=== PATIENT | female | born 1995 | race Caucasian/White ===

== ENCOUNTER 2021-10-27 15:48 | Outpatient (CLI) | payer OTHER, SELFPAY ==
--- NOTE | 2021-10-27 15:53 | XRR_ITS ---
PROCEDURE INFORMATION: Exam: XR Chest Exam date and time: 10/27/2021 3:53 PM Age: 26 years old Clinical indication: Pain; Chest pressure; Additional info: R07.89 - other chest pain TECHNIQUE: Imaging protocol: XR of the chest. Views: 2 views. COMPARISON: No relevant prior studies available. FINDINGS: Lungs: Unremarkable. No consolidation. Pleural spaces: Unremarkable. No pleural effusion. No pneumothorax. Heart/Mediastinum: Unremarkable. No cardiomegaly. Bones/joints: Unremarkable. XR/XR chest 2V* [id number] IMPRESSION: No acute findings.
[2021-10-27 16:32] LABS: D Dimer <= 0.27 ug/mIFEU (0-0.59)
== END 2021-10-27 15:49 | disposition home or self-care (01) ==
LOC: RAD 15:51
PROVIDERS: Family Provider Nurse Practitioner Family; PCP Nurse Practitioner Family; Visit Provider Nurse Practitioner Family
DX: R07.89 Other chest pain (principal)
CPT/HCPCS: 36415; 71046; 85378

== ENCOUNTER 2022-01-22 08:00 | Outpatient (CLI) | payer OTHER, SELFPAY ==
--- NOTE | 2022-01-22 08:17 | USCV_ITS ---
Herminia Che Age: 26 Gender: F : 1995 Exam Date: 01/22/2022 08:49 Ordering Phys: Hola Crespo M.D ([email or web address]) Technologist: Rico Wong [place]am [place] [facility] [place] Indication: right branch bundle block BP: 110 / 64 HR: 70 Rhythm: Sinus Technical Quality: Adequate MEASUREMENTS (Male / Female) Normal Values 2D ECHO LV Diastolic Diameter PLAX 4.8 cm 4.2 - 5.9 / 3.9 - 5.3 cm LV Systolic Diameter PLAX 3.1 cm IVS Diastolic Thickness 0.6 cm 0.6 - 1.0 / 0.6 - 0.9 cm IVS Systolic Thickness 0.8 cm LVPW Diastolic Thickness 0.7 cm 0.6 - 1.0 / 0.6 - 0.9 cm LVPW Systolic Thickness 1.1 cm LVOT Diameter 2.0 cm LV Ejection Fraction 2D Teich 64.9 % LV Ejection Fraction MOD 2C 66.2 % LV Ejection Fraction 2C AL 65.8 % LA Diameter 3.1 cm LA Width 3.1 cm LA Height 3.9 cm RA Width 3.0 cm RA Height 3.6 cm Aorta at Sinotubular Diameter 2.2 cm M-MODE Aortic Annulus Diameter 2.7 cm LA Ao Ratio MM 1.1 MV E Point Septal Separation 0.6 cm DOPPLER AV Peak Velocity 115.0 cm/s LVOT Peak Velocity 90.0 cm/s AV Area Cont Eq vti 2.6 cm squared AV Area Cont Eq pk 2.4 cm squared MV Area PHT 4.0 cm squared Mitral E to A Ratio 1.3 MV E' Velocity 47.0 cm/s Mitral E to MV E' Ratio 6.3 Mitral E to LV E' Lateral Ratio 5.8 Mitral E to LV E' Septal Ratio 6.9 Right Atrial Pressure 3.0 mmHg RV Acceleration Time 0.2 s RV Ejection Time 0.3 s RV AcT/ET 0.5 FINDINGS Left Ventricle Normal left ventricular size. LV systolic function is normal with EF of 55-60%. No regional wall motion abnormalities. Diastolic function is normal Right Ventricle The right ventricle is normal in size and function. Right Atrium The right atrium is normal in size. Left Atrium The left atrium is normal in size. Mitral Valve Structurally normal mitral valve without significant stenosis or prolapse. There is trace mitral regurgitation. Aortic Valve Structurally normal aortic valve without significant sclerosis or stenosis. There is no aortic regurgitation. Tricuspid Valve Structurally normal tricuspid valve without significant stenosis or regurgitation. Pulmonary artery systolic pressure is normal. Pulmonic Valve Structurally normal pulmonic valve without significant stenosis. There is no pulmonic regurgitation. Pericardium Normal pericardium without effusion. Aorta Normal ascending aorta dimension. CONCLUSIONS LV systolic function is normal with EF of 55-60% Diastolic function is normal Trace mitral regurgitation No comparion studies are available Hola Crespo MD (Electronically Signed) Final Date: 22 January 2022 14:37 S
== END 2022-01-22 08:01 | disposition home or self-care (01) ==
LOC: RAD 08:01
PROVIDERS: PCP Nurse Practitioner Family; Visit Provider Internal Medicine
DX: I45.10 Unspecified right bundle-branch block (principal); I34.0 Nonrheumatic mitral (valve) insufficiency
CPT/HCPCS: 93306

== ENCOUNTER → 2023-07-23 08:45 | Outpatient (BNVA) | payer OTHER, SELFPAY | PROVIDERS: PCP Nurse Practitioner Family; Visit Provider Nurse Practitioner Family | DX: N89.8 Other specified noninflammatory disorders of vagina (principal); L73.9 Follicular disorder, unspecified | CPT/HCPCS: 81000 ==

== ENCOUNTER → 2024-01-31 09:58 | Outpatient (BNVA) | payer OTHER, SELFPAY | PROVIDERS: PCP Nurse Practitioner Family; Visit Provider Nurse Practitioner Family | DX: J06.9 Acute upper respiratory infection, unspecified (principal); H66.90 Otitis media, unspecified, unspecified ear | CPT/HCPCS: 87400 ==

== ENCOUNTER 2025-09-06 14:58 | Outpatient (CLI) | payer OTHER, SELFPAY ==
[2025-09-06] VITALS (7 sets, daily range): BP systolic 125–139; BP diastolic 84–95; PULSE 83–115; RESP 15; BMI 35.0
[2025-09-06 15:33] LABS: Nitrazine Paper, PH Negative
== END 2025-09-06 16:41 | disposition home or self-care (01) ==
LOC: OPOB 15:00 → OBGYN 15:00
PROVIDERS: PCP Nurse Practitioner Family; Visit Provider Family Medicine
DX: O26.899 Other specified pregnancy related conditions, unspecified trimester (principal); Z3A.00 Weeks of gestation of pregnancy not specified; N89.8 Other specified noninflammatory disorders of vagina
CPT/HCPCS: 59025; 83986; 99211

== ENCOUNTER 2025-09-16 05:05 | Inpatient (IN) | payer OTHER, SELFPAY ==
--- NOTE | 2025-09-01 08:45 | ANES.PREANE2 ---
Pre-Anesthetic Assessment Height/Weight: Height 1.63 m Operation Date: 09/16/25 07:20 Proposed Procedures p Section Repeat 39225(Not Applicable) - Mt Berrios MD Familial anesthetic complications: None Social No alcohol and No tobacco Exam alert, oriented x 3, clear to auscultation bilaterally and regular rate & rhythm Airway Mallampati: Class I CV/HEM RBB Anesthetic Plan ASA status: 2 Anesthesia: Regional (specify below) Risk of > 500 ml blood loss (7ml/kg in children): Yes, adequate IV access and fluids planned Medications/Allergies Home Medications ?Medication ?Instructions ?Recorded ?Confirmed ?Last Taken ?Type amoxicillin 250 mg capsule 250 mg PO TID 7 days #21 caps 04/05/25 04/05/25 Unknown Rx Allergies Allergy/AdvReac Type Severity Reaction Status Date / Time sulfamethoxazole (From Allergy Mild Hives Verified 04/05/25 09:59 Bactrim) trimethoprim (From Bactrim) Allergy Mild Hives Verified 04/05/25 09:59 [facility] [place] Anesthesia Medical History Otitis media Deep vein thrombosis, upper left extremity 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 RBBB (right bundle branch block) Surgical History S/P section Family History Father Hypertension Grandmother Hypertension Stroke Social History Smoking and tobacco/nicotine status: never used tobacco/nicotine Alcohol intake: never Substance/Drug Use: never Adopted: No Caregiver/support person: No Lives independently: No Household members: spouse Marital status: service: No Current occupational status: unemployed Sexually active: Yes Do you think of yourself as: Straight/Heterosexual Current gender identity: Female Female Reproductive History Para: 1 Spontaneous abortions: No Data Anesthesia Cardiac Studies: Echocardiogram 01/22/22
[2025-09-16] VITALS (31 sets, daily range): BP systolic 106–134; BP diastolic 54–93; PULSE 65–94; RESP 15–16; TEMP 36.6; O2SAT 96–99; BMI 36.2
--- OUTSIDE RECORDS SUMMARY | 2025-09-16 05:11 | XMS_ITS | Clinical Summary ---
Author Organization [facility] Address [address] [place] [address] Care Team Providers Care Head Of Design Name Role Phone Sherin Francisco MD Primary Care Provider Allergies No known active allergies Medications No known medications Active Problems No known active problems Resolved Problems Problem Noted Date Diagnosed Date Resolved Date Urinary tract infection with hematuria 05/30/2016 05/16/2017 Family History Medical History Relation Name Comments Healthy Brother Healthy Father Hypertension Maternal Grandmother Stroke Maternal Grandmother Healthy Mother Heart Disease Paternal Grandfather Other Paternal Grandmother Relation Name Status Comments Brother Alive Father Alive Maternal Grandfather Maternal Grandmother Alive Mother Alive Paternal Grandfather Paternal Grandmother Alive Social History Tobacco Use Types Packs/Day Years Used Date Smoking Tobacco: Never Smokeless Tobacco: Never Alcohol Use Standard Drinks/Week Comments No 0 (1 standard drink = 0.6 oz pur e alcohol) Comments No Sex and Gender Information Value Date Recorded Sex Assigned at Not on file Legal Sex Female 9:06 AM [employer] Gender Identity Not on file Sexual Orientation Not on file Last Filed Vital Signs Vital Sign Reading Time Taken Comments Blood Pressure 90/60 03/02/2019 2:53 PM CDT Pulse 105 03/02/2019 2:53 PM CDT Temperature 36.7 C (98 F) 03/02/2019 2:53 PM CDT Respiratory Rate 20 03/02/2019 2:53 PM CDT Oxygen Saturation 99% 03/02/2019 2:53 PM CDT Inhaled Oxygen Concentration - - Weight 68 kg (150 lb) 03/02/2019 2:53 PM CDT Height 162.6 cm (5' 4 ) 03/02/2019 2:53 PM CDT Body Mass Index 25.75 03/02/2019 2:53 PM CDT Plan of Treatment Health Maintenance Due Date Last Done Comments DTAP/TDAP/TD VACCINES (1 - Tdap) 2015 HEPATITIS B VACCINES (1 of 3 - 19+ 3-dose series) 05/19 CERVICAL CANCER SCREENING 2017 HPV/Cotest (21-29) 2017 PAP SMEAR 2017 HPV VACCINES (1 - 3-dose SCDM series) 2023 Preventative Visit- Commercial 11/18/2024 04/24/2016 INFLUENZA VACCINE (#1) [address] [place] [address] CHOICE PLUS [facility] CHOICE PLUS Care Teams Head Of Design Relationship Specialty Start Date End Date Sherin Francisco MD [address] [phone] PCP - General Family Practice 10/16/16
--- OUTSIDE RECORDS SUMMARY | 2025-09-16 05:11 | XMS_ITS | Encounter Summary ---
Author Organization [facility] Address [address] [place] [address] Care Team Providers Care Clinical Reimbursement Specialist Name Role Phone Sherin Francisco MD Primary Care Provider [phone] Reason for Referral * Outpatient Services (Routine) - Closed Specialty Diagnoses / Procedures Referred By Contac t Referred To Contact Radiology Diagnoses Right upper quadrant abdominal tenderness without rebound tenderness Procedures US ABDOMEN COMPLETE US ABDOMEN LIMITED Sandy Bowden FNP Phone: tel: fax: [facility] Ultrasound [place] [address] [place] [address] Phone: tel: fax: Referral ID Status Reason Start Date Expiration Date V isits Requested Visits Authorized [id number] Closed [facility] to Schedule ([facility]) 07/23/2017 08/23/2018 1 1 Encounter Details Date Type Department Care Team (Late st Contact Info) Description 07/24/2017 Ancillary Orders [facility] [address] [place] [address] Sandy Bowden FNP [address] [place] [phone] Right upper quadrant abdominal tenderness without rebound tenderness Social History Tobacco Use Types Packs/Day Years Used Date Smoking Tobacco: Never Smokeless Tobacco: Never Alcohol Use Standard Drinks/Week Comments Not Asked 0 (1 standard drink = 0.6 oz pur e alcohol) Comments No Sex and Gender Information Value Date Recorded Sex Assigned at Not on file Legal Sex Female 9:06 AM [employer] Gender Identity Not on file Sexual Orientation Not on file documented as of this encounter Plan of Treatment Not on file documented as of this encounter Results * US ABDOMEN COMPLETE (07/24/2017 9:04 AM CDT) Anatomical Region Laterality Modality Abdomen Ultrasound 07/24/2017 9:04 AM CDT Impressions 07/24/2017 4:23 PM CDT IMPRESSION: Please see below. Exam: US ABDOMEN COMPLETE Date/Time of Exam: 07/24/2017 9:04 AM Reason For Exam: Right upper quadrant abdominal tenderness without rebound tenderness. Findings: The examination is mildly limited due to patient bowel gas. The pancreas is obscured. The liver parenchyma is homogeneous. Common bile duct measures 3.4 mm in diameter. The gallbladder is normal. The spleen is normal. The right kidney measures 9.8 cm in length. The left kidney measures 10.6 cm in length. The visible abdominal aorta and IVC are unremarkable. IMPRESSION: Negative examination. Narrative Procedure Note Kary Cash MD - 07/24/2017 IMPRESSION IMPRESSION: Please see below. Exam: US ABDOMEN COMPLETE Date/Time of Exam: 07/24/2017 9:04 AM Reason For Exam: Right upper quadrant abdominal tenderness without rebound tenderness. Findings: The examination is mildly limited due to patient bowel gas. The pancreas is obscured. The liver parenchyma is homogeneous. Common bile duct measures 3.4 mm in diameter. The gallbladder is normal. The spleen is normal. The right kidney measures 9.8 cm in length. The left kidney measures 10.6 cm in length. The visible abdominal aorta and IVC are unremarkable. IMPRESSION: Negative examination. us Sandy SAHU US ORDERABLES Final Resul t documented in this encounter Visit Diagnoses Diagnosis Right upper quadrant abdominal tenderness without rebound tenderness Right upper quadrant abdominal tenderness without rebound tenderness documented in this encounter Care Teams Clinical Reimbursement Specialist Relationship Specialty Start Date End Date Sherin Francisco MD [address] [phone] PCP - General Family Practice 10/16/16 documented as of this encounter
--- OUTSIDE RECORDS SUMMARY | 2025-09-16 05:11 | XMS_ITS | Continuity of Care Document ---
Author Organization [place] - Glenn Mcgee [facility], [place], [facility] ([facility]) Address [address] [place] [address] Assessment No assessment recorded. Plan of Treatment Reminders Order Date Submit Date Provider Last Modified By Organization Details Last Modified Time Details Appointments RETURN OB 2024 09:20A M Mt Berrios MD Not available Not available Not available Lab None recorded . Referral None recorded . Procedures None recorded . Surgeries None recorded . Imaging None recorded . Medication Orders None recorded . Patient TargetsNo targets recorded. Patient InstructionsNo instructions recorded. Reason for Referral None Reported. Results Created Date Observation Date Name Description Value Unit Range Abnormal Flag Note LastModifiedBy Organization Detail LastModifiedTime 03/09/2003/10/2025 URINA LYSIS , COMPL ETE color YELLOW yellow normal Not Available [address] [address] [place], [address], 03/10/2025 22:21:06 03/09/20 25 03/10/2025 URINA LYSIS , COMPL ETE appearance CLOUDY clear abnormal Not Available [facility] [address] [address] [place], [address], 03/10/2025 22:21:06 03/09/20 25 03/10/2025 URINA LYSIS , COMPL ETE specific gravity 1.023 1.001- 1.035 normal Not Available [facility] [address] [place], [address], 03/10/2025 22:21:06 03/09/20 25 03/10/2025 URINA LYSIS , COMPL ETE pH 6.5 5.0-8. 0 normal Not Available [address], [address], 03/10/2025 22:21:06 03/09/20 25 03/10/2025 URINA LYSIS , COMPL ETE glucose NEGATI VE negati ve normal Not Available [address], [address], 03/10/2025 22:21:06 03/09/20 25 03/10/2025 URINA LYSIS , COMPL ETE bilirubin NEGATI VE negati ve normal Not Available [address], [address], 03/10/2025 22:21:06 03/09/20 25 03/10/2025 URINA LYSIS , COMPL ETE ketones NEGATI VE negati ve normal Not Available [address], [address], 03/10/2025 22:21:06 03/09/20 25 03/10/2025 URINA LYSIS , COMPL ETE occult blood NEGATI VE negati ve normal Not Available [address], [address], 03/10/2025 22:21:06 03/09/20 25 03/10/2025 URINA LYSIS , COMPL ETE protein TRACE negati ve abnormal Not Available [address], [address], 03/10/2025 22:21:06 03/09/20 25 03/10/2025 URINA LYSIS , COMPL ETE nitrite NEGATI VE negati ve normal Not Available [address], [address], 03/10/2025 22:21:06 03/09/20 25 03/10/2025 URINA LYSIS , COMPL ETE leukocyte esterase TRACE negati ve abnormal Not Available [address], [address], 03/10/2025 22:21:06 03/09/20 25 03/10/2025 URINA LYSIS , COMPL ETE WBC 6-10 /hpf < or = 5 abnormal Not Available [address], [address], 03/10/2025 22:21:06 03/09/20 25 03/10/2025 URINA LYSIS , COMPL ETE RBC NONE SEEN /hpf < or = 2 normal Not Available [address], [address], 03/10/2025 22:21:06 03/09/20 25 03/10/2025 URINA LYSIS , COMPL ETE squamous epithelial cells 10-20 /hpf < or = 5 abnormal Not Available [address], [address], 03/10/2025 22:21:06 03/09/20 25 03/10/2025 URINA LYSIS , COMPL ETE bacteria MANY /hpf none seen abnormal Not Available [address], [address], 03/10/2025 22:21:06 03/09/20 25 03/10/2025 URINA LYSIS , COMPL ETE calcium oxalate crystals FEW /hpf none or few normal Not Available [address], [address], 03/10/2025 22:21:06 03/09/20 25 03/10/2025 URINA LYSIS , COMPL ETE hyaline cast 6-10 /lpf none seen abnormal Not Available [address], [address], 03/10/2025 22:21:06 03/09/20 25 03/10/2025 URINA LYSIS , COMPL ETE note This urine was bonnie zed for the prese nce of WBC, RBC, bacte alondra, casts , and other forme d eleme nts. Only those eleme nts seen were repor redd. Not Available [address], [address], 03/10/2025 22:21:06 03/09/20 25 03/10/2025 CBC (INCL UDES DIFF/ PLT) white blood cell count 7.9 thous and/u L 3.8-10 .8 normal Not Available [address], [address], 03/10/2025 22:21:08 03/09/20 25 03/10/2025 CBC (INCL UDES DIFF/ PLT) red blood cell count 4.86 nithya on/uL 3.80-5 .10 normal Not Available [address], [address], 03/10/2025 22:21:08 03/09/20 25 03/10/2025 CBC (INCL UDES DIFF/ PLT) hemoglobin 14.1 g/dL 11.7-1 5.5 normal Not Available [address], [address], 03/10/2025 22:21:08 03/09/20 25 03/10/2025 CBC (INCL UDES DIFF/ PLT) hematocrit 44.1 % 35.0-4 5.0 normal Not Available [address], [address], 03/10/2025 22:21:08 03/09/20 25 03/10/2025 CBC (INCL UDES DIFF/ PLT) MCV 90.7 fL 80.0-1 00.0 normal Not Available [address], [address], 03/10/2025 22:21:08 03/09/20 25 03/10/2025 CBC (INCL UDES DIFF/ PLT) MCH 29.0 pg 27.0-3 3.0 normal Not Available [address], [address], 03/10/2025 22:21:08 03/09/20 25 03/10/2025 CBC (INCL UDES DIFF/ PLT) MCHC 32.0 g/dL 32.0-3 6.0 normal For adult s, a sligh t decre ase in the calcu lated MCHC value (in the range of 30 to 32 g/dL) is most likel y not clini radha signi fican t; ednaev er, it shoul d be inter prete d with cauti on in corre latio n with other red cell franchesca eters and the patie nt's clini [place]olina condi tion. Not Available [address], [address], 03/10/2025 22:21:08 03/09/20 25 03/10/2025 CBC (INCL UDES DIFF/ PLT) RDW 12.9 % 11.0-1 5.0 normal Not Available [address], [address], 03/10/2025 22:21:08 03/09/2003/10/2025 CBC (INCL UDES DIFF/ PLT) platelet count 259 thous and/u L 140-40 0 normal Not Available [address], [address], 03/10/2025 22:21:08 03/09/2003/10/2025 CBC (INCL UDES DIFF/ PLT) MPV 10.2 fL 7.5-12 .5 normal Not Available [address], [address], 03/10/2025 22:21:08 03/09/20 25 03/10/2025 CBC (INCL UDES DIFF/ PLT) absolute neutrophils 6170 cells /uL 1500-7 800 normal Not Available Ayasdi [address], [address], 03/10/2025 22:21:08 03/09/20 25 03/10/2025 CBC (INCL UDES DIFF/ PLT) absolute lymphocytes 1248 cells /uL 850-39 00 normal Not Available [address], [address], 03/10/2025 22:21:08 03/09/20 25 03/10/2025 CBC (INCL UDES DIFF/ PLT) absolute monocytes 450 cells /uL 200-95 0 normal Not Available [address], [address], 03/10/2025 22:21:08 03/09/20 25 03/10/2025 CBC (INCL UDES DIFF/ PLT) absolute eosinophils 8 cells /uL 15-500 low Not Available [address], [address], 03/10/2025 22:21:08 03/09/20 25 03/10/2025 CBC (INCL UDES DIFF/ PLT) absolute basophils 24 cells /uL 0-200 normal Not Available [address], [address], 03/10/2025 22:21:08 03/09/20 25 03/10/2025 CBC (INCL UDES DIFF/ PLT) neutrophils 78.1 % normal Not Available [address], [address], 03/10/2025 22:21:08 03/09/20 25 03/10/2025 CBC (INCL UDES DIFF/ PLT) lymphocytes 15.8 % normal Not Available [address], [address], 03/10/2025 22:21:08 03/09/20 25 03/10/2025 CBC (INCL UDES DIFF/ PLT) monocytes 5.7 % normal Not Available [address], [address], 03/10/2025 22:21:08 03/09/20 25 03/10/2025 CBC (INCL UDES DIFF/ PLT) eosinophils 0.1 % normal Not Available [address], [address], 03/10/2025 22:21:08 03/09/20 25 03/10/2025 CBC (INCL UDES DIFF/ PLT) basophils 0.3 % normal Not Available [address] [address] [place], [address], 03/10/2025 22:21:08 03/09/20 25 03/10/2025 HEPAT ITIS B SURFA CE ANTIG EN W/REF L CONFI RM hepatitis B surface antigen NON-RE ACTIVE non-re active normal For addit ional infor gabriel rothman, nanette e refer to http: //[facility] terrie rothman.que stdia gnost ics.c om/fa q/FAQ 202 (This link is being provi ded for infor matio nal/ educa abdullahi l purpo ses only. ) Not Available [address], [address], 03/10/2025 22:21:08 03/09/20 25 03/10/2025 HEPAT ITIS C AB W/REF L TO HCV RNA, QN, PCR hepatitis C antibody NON-RE ACTIVE non-re active normal HCV antib eileen was non-r eacti ve. There is no labor atory evide nce of HCV infec tion. In most cases , no furth er actio n is requi red. Howev er, if recen t HCV expos ure is suspe cted, a test for HCV RNA (test code 36467 ) is sugge sted. For addit ional infor matio n pleas e refer to http: //[facility] terrie n.que stdia gnost ics.c om/fa q/FAQ 22v1 (This link is being provi ded for infor matio nal/ educa abdullahi l purpo ses only. ) Not Available [facility] [address], [place], [address], 03/10/2025 22:21:09 03/09/20 25 03/10/2025 RUBEL LA AB (IGG) , IMMUN E STATU S rubella Ab (IgG), immune status 1.55 index normal Index Inter preta tion ----- ----- ----- ---- <0.90 Not consi stent with immun ity 0.90- 0.99 Equiv ocal > or = 1.00 Consi stent with immun ity The prese nce of rubel la IgG antib eileen sugge sts immun izati on or past or curre nt infec tion with rubel la virus . Not Available [facility] [address], [place], [address], 03/10/2025 22:21:10 03/09/20 25 03/10/2025 HIV 1/2 ANTIG EN/AN TIBOD Y,FOU RTH GENER ATION W/RFL HIV Ag/Ab, 4TH gen NON-RE ACTIVE non-re active normal HIV-1 antig en and HIV-1 /HIV- 2 antib odies were not detec redd. There is no labor atory evide nce of HIV infec tion. PLEAS E NOTE: This infor matio n has been discl osed to you from recor ds whose confi denti ality may be prote cted by state law. If your state requi res such prote ction , then the state law prohi bits you from rodney adan any furth er discl osure of the infor matio n witho ut the speci fic writt en conse nt of the perso n to whom it perta ins, or as other de souza permi tted by law. A gener al autho leo ion for the relea se of medic al or other infor matio n is NOT suffi cient for this purpo se. For addit ional infor matio n pleas e refer to http: //[facility] terrie herrera stdia gnost ics.c om/fa q/FAQ 106 (This link is being provi ded for infor gabriel andrews/ educa abdullahi l purpo ses only. ) The perfo rmanc e of this assay has not been clini radha valid ated in patie nts less than 2 years old. Not Available [facility] [address], [address], 03/10/2025 22:21:11 03/09/20 25 03/10/2025 RPR (DX) W/REF L TITER AND T. PALLI DUM AB, IA RPR (DX) w/refl titer and confirmatory testing NON-RE ACTIVE non-re active normal No labor atory evide nce of syphi lis. If recen t expos ure is suspe cted, submi t a new sampl e in 2-4 weeks . Not Available [facility] [address] [place], [address], 03/10/2025 22:21:12 03/09/20 25 03/10/2025 ANTIB EILEEN SCREE N, RBC W/REF L ID, TITER AND AG antibody screen, RBC w/refl id, titer and Ag NO ANTIBO DIES DETECT ED normal Refer ence range No antib odies detec redd This assay is a scree diamond test for the detec tion of red blood cell antib odies . The test is not to be used for pretr ansfu floyd scree diamond or for the medic al manag ement of an alloi mmuni zed pregn jyothi. Not Available [facility] [address] [place], [address], 03/10/2025 22:21:13 03/09/20 25 03/10/2025 ABO GROUP AND RH TYPE ABO group A Not Available [facility] [address], [address], 03/10/2025 22:21:14 03/09/20 25 03/10/2025 ABO GROUP AND RH TYPE Rh type RH(D) POSITI VE For addit ional infor nanette tomas e refer to http: //[facility] terrie Lillyia gnost ics.c om/fa q/FAQ 111 (This link is being provi ded for infor gabriel andrews/ educsangeeta boo ses only. ) Not Available [facility] [address], [place], [address], 03/10/2025 22:21:14 03/09/20 25 03/10/2025 DRUG MONIT OR, PANEL 1, SCREE N, URINE amphetamines NEGATI VE NG/mL <500 See Note A See Note A Not Available [facility] [address], [place], [address], 03/10/2025 22:21:15 03/09/20 25 03/10/2025 DRUG MONIT OR, PANEL 1, SCREE N, URINE barbiturates NEGATI VE NG/mL <300 See Note A See Note A Not Available [facility] [address], [place], [address], 03/10/2025 22:21:15 03/09/20 25 03/10/2025 DRUG MONIT OR, PANEL 1, SCREE N, URINE benzodiazepi ethan NEGATI VE NG/mL <100 See Note A See Note A Not Available [facility] [address], [place], [address], 03/10/2025 22:21:15 03/09/20 25 03/10/2025 DRUG MONIT OR, PANEL 1, SCREE N, URINE cocaine metabolite NEGATI VE NG/mL <150 See Note A See Note A Not Available [facility] [address], [place], [address], 03/10/2025 22:21:15 03/09/20 25 03/10/2025 DRUG MONIT OR, PANEL 1, SCREE N, URINE marijuana metabolite NEGATI VE NG/mL <20 See Note A See Note A Not Available [facility] [address], [place], [address], 03/10/2025 22:21:15 03/09/20 25 03/10/2025 DRUG MONIT OR, PANEL 1, SCREE N, URINE methadone metabolite NEGATI VE NG/mL <100 See Note A See Note A Not Available [address], [place], [address], 03/10/2025 22:21:15 03/09/20 25 03/10/2025 DRUG MONIT OR, PANEL 1, SCREE N, URINE opiates NEGATI VE NG/mL <100 See Note A See Note A Not Available [address], [place], [address], 03/10/2025 22:21:15 03/09/2003/10/2025 DRUG MONIT OR, PANEL 1, SCREE N, URINE oxycodone NEGATI VE NG/mL <100 See Note A See Note A Not Available [address], [place], [address], 03/10/2025 22:21:15 03/09/20 25 03/10/2025 DRUG MONIT OR, PANEL 1, SCREE N, URINE phencyclidin e NEGATI VE NG/mL <25 See Note A See Note A Not Available [address], [place], [address], 03/10/2025 22:21:15 03/09/20 25 03/10/2025 DRUG MONIT OR, PANEL 1, SCREE N, URINE creatinine 201.7 mg/dL > or = 20.0 Not Available [address], [place], [address], 03/10/2025 22:21:15 03/09/20 25 03/10/2025 DRUG MONIT OR, PANEL 1, SCREE N, URINE pH 6.6 4.5-9. 0 Not Available [address], [place], [address], 03/10/2025 22:21:15 03/09/20 25 03/10/2025 DRUG MONIT OR, PANEL 1, SCREE N, URINE oxidant NEGATI VE mcg/m L <200 Not Available [facility] [address] [place], [address], 03/10/2025 22:21:15 03/09/20 25 03/10/2025 DRUG MONIT ORING TEMPL ATE notes and comments This drug testi ng is for medic al treat ment only. Bonnie sis was perfo rmed as non-f orens ic testi ng and these resul ts shoul d be used only by [facility] provi ders to rende r diagn osis or treat ment, or to monit or progr ess of medic al condi tions . Note A: The resul ts are presu mptiv e; based only on yen fields baldo ds, and they have not been confi rmed by a defin itive metho d. [facility] Provi ders needi ng Inter preta tion britney tance , pleas e conta ct us at 1.877 .40.R XTOX (1.87 [phone] ) M-F, 8am to 10pm EST Not Available [facility] [address], [place], [address], 03/10/2025 22:21:16 03/09/20 25 03/10/2025 CULTU RE, URINE , ROUTI NE culture, urine, routine SEE NOTE CULTU RE, URINE , ROUTI NE Micro Numbe r: [id number] Test Statu s: Final Speci men Sourc e: Urine Speci men Quali ty: Adequ ate Resul t: Mixed genit al rip isola redd. These super ficia l bacte alondra are not indic ative of a urina ry tract infec tion. No furth er organ ism ident ifica tion is warra nted on this speci men. If clini radha indic ated, recol lect clean -catc h, mid-s tream urine and trans handy immed iatel y to Urine Cultu re Trans port Tube. Not Available [facility] [address], [place], [address], 03/10/2025 22:21:16 03/09/2003/12/2025 THINP REP TIS PAP (REFL ) HPV MRNA E6/E7 clinical information: normal Pregn ant Not Available [address], [address], 03/12/2025 17:53:00 03/09/2003/12/2025 THINP REP TIS PAP (REFL ) HPV MRNA E6/E7 LMP: normal NONE GIVEN Not Available [address], [address], 03/12/2025 17:53:00 03/09/2003/12/2025 THINP REP TIS PAP (REFL ) HPV MRNA E6/E7 prev. Pap: normal NONE GIVEN Not Available [address], [address], 03/12/2025 17:53:00 03/09/20 25 03/12/2025 THINP REP TIS PAP (REFL ) HPV MRNA E6/E7 prev. BX: normal NONE GIVEN Not Available [address], [address], 03/12/2025 17:53:00 03/09/2003/12/2025 THINP REP TIS PAP (REFL ) HPV MRNA E6/E7 source: normal Cervi x, Endoc ervix Not Available [address], [address], 03/12/2025 17:53:00 03/09/2003/12/2025 THINP REP TIS PAP (REFL ) HPV MRNA E6/E7 statement of adequacy: normal Satis facto ry for evalu ation . Endoc ervic al/tr ansfo rmati on zone compo nent prese nt. Not Available [address] [place], [address], 03/12/2025 17:53:00 03/09/2003/12/2025 THINP REP TIS PAP (REFL ) HPV MRNA E6/E7 interpretati on/result: normal Cytol ogy Resul ts: Negat samantha for intra epith elial lesio n or sandra lazar . Not Available [address] [address] [place], [address], 03/12/2025 17:53:00 03/09/2003/12/2025 THINP REP TIS PAP (REFL ) HPV MRNA E6/E7 comment: normal This Pap test has been evalu ated with compu malin techn ology . Not Available [address] [address] [place], [address], 03/12/2025 17:53:00 03/09/2003/12/2025 THINP REP TIS PAP (REFL ) HPV MRNA E6/E7 cytotechnolo gist: normal TMK, CT( CP) CT scree diamond locat ion: [address] [address] [place] [address] Not Available [address] [address] [place], [address], 03/12/2025 17:53:00 03/09/2003/12/2025 THINP REP TIS PAP (REFL ) HPV MRNA E6/E7 comment EXPLA NATOR Y NOTE: The Pap is a scree diamond test for cervi carolina cance r. It is not a diagn ostic test and is subje ct to false negat samantha and false posit samantha resul ts. It is most relia ble when a satis facto ry sampl e, regul abdulaziz obtai ari, is submi tted with relev ant clini carolina findi ngs and histo ry, and when the Pap resul t is evalu ated along with histo jono and curre nt clini carolina infor matio n. Not Available [address] [address] [place], [address], 03/12/2025 17:53:00 03/09/2003/09/2025 CT + NG + TV, DNA, urine /swab Chlamydia negati ve Not Available [facility] ([facility]) [address] [place], [address], 03/08/2025 12:48:20 03/09/20 25 03/09/2025 CT + NG + TV, DNA, urine /swab Gonorrhea negati ve Not Available [facility] ([facility]) [address] [place], [address], 03/08/2025 12:48:20 03/09/20 25 03/09/2025 CT + NG + TV, DNA, urine /swab Trichomonas negati ve Not Available [facility] ([facility]) [address] [place], [address], 03/08/2025 12:48:20 07/07/20 25 07/07/2025 CBC WBC 7.2 x10 4.0-10 .5 Not Available [facility] [address], [place], [address], 07/07/2025 10:43:30 07/07/20 25 07/07/2025 CBC RBC 4.24 x10 3.50-5 .50 Not Available [facility] [address], [place], [address], 07/07/2025 10:43:30 07/07/20 25 07/07/2025 CBC HGB 12.1 g/dL 12.0-1 6.0 Not Available [facility] [address], [place], [address], 07/07/2025 10:43:30 07/07/20 25 07/07/2025 CBC HCT 37.1 % 37.0-4 7.0 Not Available [facility] [address], [place], [address], 07/07/2025 10:43:30 07/07/20 25 07/07/2025 CBC MCV 87.6 fL 80.0-9 9.9 Not Available [facility] [address] [facility] [address], [place], [address], 07/07/2025 10:43:30 07/07/20 25 07/07/2025 CBC MCH 28.4 pg 27.0-3 2.0 Not Available [facility] [address] [facility] [facility] [address], [place], [address], 07/07/2025 10:43:30 07/07/20 25 07/07/2025 CBC MCHC 32.5 g/dL 32.0-3 6.0 Not Available [facility] [address] [facility] [address], [place], [address], 07/07/2025 10:43:30 07/07/20 25 07/07/2025 CBC RDW 13.4 % 11.5-1 4.5 Not Available [facility] [address] [facility] [address], [place], [address], 07/07/2025 10:43:30 07/07/20 25 07/07/2025 CBC plt 238.7 x10 140.0- 451.0 Not Available [facility] [address] [facility] [address], [place], [address], 07/07/2025 10:43:30 07/07/20 25 07/07/2025 CBC lymphocytes % 16.0 % 20.0-5 0.0 low Not Available [facility] [address] [facility] [address], [place], [address], 07/07/2025 10:43:30 07/07/20 25 07/07/2025 CBC granulcytes % 77.8 % 30.0-7 0.0 high Not Available [facility] [address] [facility] [address], [place], [address], 07/07/2025 10:43:30 07/07/20 25 07/07/2025 CBC monocytes % 5.2 % 2.0-16 .0 Not Available [facility] [address] [address], [place], [address], 07/07/2025 10:43:30 07/07/20 25 07/07/2025 CBC granulcytes# 5.6 x10 Not Gin ilable [facility] [address] [address], [place], [address], 07/07/2025 10:43:30 07/07/20 25 07/07/2025 CBC lymphocytes # 1.1 x10 Not Available [facility] [address] [address], [place], [address], 07/07/2025 10:43:30 07/07/20 25 07/07/2025 CBC monocytes # 0.4 x10 Not Avai lable [facility] [address] [address], [place], [address], 07/07/2025 10:43:30 07/07/20 25 07/07/2025 GLUCO SE SCREE N glucose screen 167.0 mg/dL Not Available [address], [address], 07/07/2025 10:56:46 07/12/20 25 07/12/2025 gluco se marlene ance test, gesta abdullahi l, 3-yehuda r Fasting 90 Not Available [facility] [address] [place] [address], [address], 07/12/2025 16:09:30 07/12/20 25 07/12/2025 gluco se marlene ance test, gesta abdullahi l, 3-yehuda r 1-Hour 183 Not Available [facility] ([facility]) [address] [place], [address], 07/12/2025 16:09:30 07/12/20 25 07/12/2025 gluco se marlene ance test, gesta abdullahi l, 3-yehuda r 2-Hour 162 Not Available [facility] ([facility] [address] [place], [address], 07/12/2025 16:09:30 07/12/20 25 07/12/2025 gluco se marlene ance test, gesta abdullahi l, 3-yehuda r 3-Hour 105 Not Available [facility] ([facility] [address] [place], [address], 07/12/2025 16:09:30 09/01/20 25 09/04/2025 STREP TOCOC CUS, GROUP B CULTU RE streptococcu s, group B culture SEE NOTE STREP TOCOC CUS, GROUP B CULTU RE Micro Numbe r: [id number] Test Statu s: Final Speci men Sourc e: Vagin al/an orect al Speci men Quali ty: Adequ ate Resul t: No group B Strep tococ cus isola redd Note per CDC guide lines optim al recov lonnie is achie shiv by swabb ing both the lower vagin a and rectu m (thro ugh the anal sphin cter) . Not Available [facility] [address] [place], [address], 09/04/2025 09:47:54 02/19/20 25 02/16/2025 US, obste tric, 1st trime ster No observ ation record ed. Not Available 02/19 09:39:37 05/12/20 25 05/10/2025 US, obste tric, 2nd trime ster No observ ation record ed. [facility] [address] [place], [address], 05/14/2025 12:51:47 Result Notes None recorded. Problems Name Problem SNOMED Code Status Onset Date Resolution Date Notes Provider Name and Address Organization Details Recorded Time 65612623 Active 2024 ELIZABETHKIERSTEN GARCIAABIODUN ANILA [facility] 5 09:58:25 Nausea and vomiting in Active 2024 ELIZABETH VANESSAANNEL ANILA [facility] 5 09:58:17 Nausea and vomiting in Active [address] [facility] VANESSAANNEL ANILA [facility] 5 09:58:18 Normal in multigravid a [id number] 06 Active 2024 ZAK LERNER [facility] 5 12:47:12 Normal 49616201 Active 2024 ZAK EDUARDA [facility] 5 18:39:01 Second trimester 62694698 Active 2024 ZAK EDUARDA [facility] 5 14:09:53 Problem Notes None recorded. Procedures Surgical History Date Name Laterality Status Provider Name and Address Organization Details Recorded Time 03/09/20 Date of Last Pap Smear [facility] 18:03:47 03/09/20 liquid based cervical cytology screening completed [facility] 03/15/2025 18:04:04 09/21/20 section completed [facility] 02/03/2025 14:25:40 Imaging Results None recorded. Procedure Notes None recorded. Medical Equipment None Reported. Allergies Allergen ID Allergen Name Allergen Category Reaction Reaction Severity Criticality Documentation Date Start Date Code Code System Note Provider Name and Address Organization Details Recorded Time 01208 Bactrim medicatio n Not available Not available Not available 02/03/2025 67856 [id number] RxNorm [facility] 14:19:54 Medications Name Sig Start Date Stop Date Status Note LastModified by Organization Details LastModified Time ondansetron HCl 4 mg tablet TAKE 1 TABLET BY MOUTH EVERY 6 HOURS NEEDED active Not Available Not Available No t Available cephalexin 500 mg capsule TAKE 1 CAPSULE BY MOUTH 3 TIMES DAILY FOR 10 DAYS 03/09 completed Not Available Not Available Not Available promethazin e 25 mg tablet TAKE 1 tablet BY MOUTH every 6 HOURS needed, FOR nausea AND vomiting 04/07 completed Not Available Not Available Not Available amoxicillin 250 mg capsule TAKE 1 CAPSULE BY MOUTH three TIMES daily FOR 7 DAYS 05/11 completed Not Available Not Available Not Available Unisom (doxylamine ) 25 mg tablet 1/2 tablet AM, noon, and 1 at HS 03/09 completed Not Available Not Available Not Available Gummies active Not Available Not Available Not Available Vitals Date Recorded Body height Body mass index (BMI) Body weight Oxygen saturation Oxygen saturation in Arterial blood by Pulse oximetry Heart rate Respiratory rate Body temperature Systolic And Diastolic Provider Name and Address Organization Details Last Updated DateTime 5 162.56 cm 36.2 kg/m2 87836.9 9 g 98 % 98 % 81 /min 18 /min 98.6 [degF] 124/64 mm[Hg] NICOLE HIGH [facility]CR[facility]ita 5 10:51:16 Social History Question Answer Notes LastModified by Organizat ion Details LastModified Time Tobacco Smoking Status Never Smoker NICOLE weinstein [facility] LR[facility]itaLS[facility]a 02/03/2025 14:24:53 Are You Blind Or Do You Have Difficulty Seeing? No Information not available 02/03/2025 Are You Deaf Or Do You Have Serious Difficulty Hearing? No Information not available 02/03/2025 What Was The Date Of Your Most Recent Tobacco Screening? 04/07/2025 Information not available 04/07/2025 What Is Your Relationship Status? Information not available 02/03/2025 Do You Have Difficulty Walking Or Climbing Stairs? No Information not available 04/07/2025 Sex: Unknown Functional Status Question Answer Note LastModified by Organizat ion Details LastModified Time Do you use any illicit or recreational drugs? No Information not available 02/03/2025 Do you or have you ever used any other forms of tobacco or nicotine? No Information not available 04/07/2025 What is your level of alcohol consumption? None Information not available 02/03/2025 Are you currently employed? No Information not available 02/03/2025 Do you have transportation difficulties? No Information not available 04/07/2025 Are you able to walk independently without assistance or assistive devices? YESWOREST Information not available 04/07/2025 Do you have difficulty doing errands alone? No Information not available 04/07/2025 Are you able to care for yourself independently? Yes Information not available 02/03/2025 Do you have difficulty dressing, bathing, grooming, or toileting? No Information not available 04/07/2025 Mental Status Question Answer Note LastModified by Organization D etails LastModified Time Do you have difficulty concentrating, remembering or making decisions? No Information no t available 02/03/2025 Family History Relationship Description Onset Age of this Age Resolved Age Notes LastModified by Organization Details LastModified Time Mother Hypertensive disorder [email or web address] Not available 14:23:24 Father Hypertensive disorder [email or web address] Not available 14:23:24 Maternal Grandfather Heart disease [email or web address] Not available 14:23:53 Maternal Grandmother Heart disease tneuschwander Not available 14:23:53 Medical History No medical history recorded. Gynecological History Statement/Question Response Abnormal Pap N Date of Last Pap Smear 03/09/2025 Obstetrics History GPAL:G 2 P 1 0 0 1 Type Value Full Term 1 Living 1 Total 2 Past Encounters Encounter ID Performer Location Encounter Start Date Encounter Closed Date Diagnosis/Indication Diagnosis SNOMED-CT Code Diagnosis ICD10 Code Diagnosis IMO Codes Diagnosis Note [id number] Mt Berrios MD [facility] ([facility]) [address] [place] [address] [phone] 08/18/2025 10:15:42 08/18/2025 11:27:30 Multigravida 652814641 Z34.83 [id number] - Assess for complicati ons linked to prior blood clot. - Educate on warning signs and ensure regular follow-ups . Gestation period, 34 weeks 43060106 Z3A.34 [id number] Mt Berrios MD [facility] ([facility]) [address] [place] [address] [phone] 09/01/2025 10:10:22 09/01/2025 11:23:15 [id number] Z34.90 Gestation period, 36 weeks 38336975 Z3A.36 [id number] Mt Berrios MD [facility] ([facility]) [address] [place] [address] [phone] 09/08/2025 10:27:17 09/08/2025 11:43:48 [id number] Z34.90 Gestation period, 37 weeks 27848376 Z3A.37 [id number] Mt Berrios MD [facility]) [address] [place] [address] [phone] 09/15/2025 10:19:54 09/15/2025 11:20:40 [id number] Z34.90 Gestation period, 38 weeks 79570421 Z3A.38 [id number] Health Concerns Section Related Observation LastModified by Organization Detai ls LastModified Time None Recorded Concern Status LastModified by Organization Details LastModified Time None Recorded Payers Encounter Date Sequence Insurance Name Policy Number Policy Marquez Covered Member ID Marquez Member ID Guarantor Name 09/15/2025 1 [facility] [id number] Vargas Che [id number] Herminia Che Notes Date Note Type Note Provider Name and Address Organization Details Recorded Time 5 text/htm l jr ob routineReported by PatientHPIFor associated symptoms, patient reportsnauseaandedemabut reportsno abdominal pain,no cramping,no contractions,normal movement,no bleeding,no vaginal discharge,no vaginal/vulvar itching or irritation,no dysuria,no frequency,no urgency,no hematuria,no fever,no emesis,no constipation,no diarrhea/loose stool,no visual changes,no headache,no dizziness, andno breathlessness.heartburn, low back pain,Pt denies any alcohol, drug or tobacco useROS as noted in the HPI The patient is a 30-year-old female presenting for a routine check-up at 38.6 weeks gestation. Multigravida:- The patient is in the third trimester and has a history of a blood clot in the left arm from 2021. 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 Status 02/04/20 1 A Positive Vargas OPEN Fetus Data First Name Last Name Admitted to NICU Weight (g) Sex Living Outcome Pediatric Complications Fetus ID Race Codes Race Delivery Type [id number] Problems Problem Notes History of DVT but there was an iliciting factor so no prophylaxis needed.Repeat ltcsC-section scheduled for 09/16/25, anesthesia consult scheduled for 09/01/25 Problem Name Start Date End Date Resolution Snomed Code Not e Normal in multigravida 03/08/2025 [id number] Nausea and vomiting in 02/10/2025 9354095088 Normal 04/06/2025 [id number] Second trimester 05/11/2025 [id number] Carlos Eduardo Calculation Initial Carlos Eduardo Date Initial Exam Date Initial Exam Provider Initial Ultrasound Date Last Menstrual Period Date Ultra Sound Weeks Gestation 09/23/2025 02/03/2025 02/16/2025 8 Eighteen To Twenty Week Carlos Eduardo Update Ultra Sound Date Fundal Height At Umbil Quickening Date Ultra Sound Latest Weeks Gestation Final Carlos Eduardo Confirmed By Final Carlos Eduardo Confirmed Date Final Carlos Eduardo Date Ultra Sound Latest Days Gestation 0 0 Pre-sofía Flowsheet Flowsheet Date 02/03/2025 Barker Score Blood Edema Fundus Height Fundus Units Glucose Ketones Leukocytes Nitrite Labor Signs Protein Cervic Dilation Cervic Effacement Cervic Station Type Weight in lbs Pre/Post Dialysis Refused Weight 174.286750465952 BP Diastolic BP Location Tested BP Systolic BP Type 70 118 sitting Fetus Heart Rate Present Fetus Movement Comments Flowsheet Date 02/16/2025 Barker Score Blood Edema Fundus Height Fundus Units Glucose Ketones Leukocytes Nitrite Labor Signs Protein Cervic Dilation Cervic Effacement Cervic Station Type Weight in lbs Pre/Post Dialysis Refused BP Diastolic BP Location Tested BP Systolic BP Type Fetus Heart Rate Present Fetus Movement Comments u/s on 02/16/25, CARLOS EDUARDO 09/23/25,E GA 8.5, IUP with CARMELINA= 0.251cm3 Flowsheet Date 03/09/2025 Barker Score Blood Edema Fundus Height Fundus Units Glucose Ketones Leukocytes Nitrite Labor Signs Protein Cervic Dilation Cervic Effacement Cervic Station Type Weight in lbs Pre/Post Dialysis Refused Weight 170.045664966203 BP Diastolic BP Location Tested BP Systolic BP Type 76 122 sitting Fetus Heart Rate Present A 172 Present Fetus Movement Comments NOB, nausea,vomiting, headac he,dizziness Flowsheet Date 04/07/2025 Barker Score Blood Edema Fundus Height Fundus Units Glucose Ketones Leukocytes Nitrite Labor Signs Protein Cervic Dilation Cervic Effacement Cervic Station none 1+ trace Type Weight in lbs Pre/Post Dialysis Refused Weight 177.347747821325 BP Diastolic BP Location Tested BP Systolic BP Type 72 124 Fetus Heart Rate Present A 156 Present Fetus Movement A No Comments constipation, headaches, Flowsheet Date 05/10/2025 Barker Score Blood Edema Fundus Height Fundus Units Glucose Ketones Leukocytes Nitrite Labor Signs Protein Cervic Dilation Cervic Effacement Cervic Station Type Weight in lbs Pre/Post Dialysis Refused BP Diastolic BP Location Tested BP Systolic BP Type Fetus Heart Rate Present Fetus Movement Comments Flowsheet Date 05/11/2025 Barker Score Blood Edema Fundus Height Fundus Units Glucose Ketones Leukocytes Nitrite Labor Signs Protein Cervic Dilation Cervic Effacement Cervic Station Type Weight in lbs Pre/Post Dialysis Refused BP Diastolic BP Location Tested BP Systolic BP Type Fetus Heart Rate Present Fetus Movement Comments Flowsheet Date 05/11/2025 Barker Score Blood Edema Fundus Height Fundus Units Glucose Ketones Leukocytes Nitrite Labor Signs Protein Cervic Dilation Cervic Effacement Cervic Station none trace trace Type Weight in lbs Pre/Post Dialysis Refused Weight 184.684540018900 BP Diastolic BP Location Tested BP Systolic BP Type 64 120 Fetus Heart Rate Present A 164 Present Fetus Movement A Yes Comments LUQ pain, constipation, MONTES i n am Flowsheet Date 05/14/2025 Barker Score Blood Edema Fundus Height Fundus Units Glucose Ketones Leukocytes Nitrite Labor Signs Protein Cervic Dilation Cervic Effacement Cervic Station Type Weight in lbs Pre/Post Dialysis Refused BP Diastolic BP Location Tested BP Systolic BP Type Fetus Heart Rate Present Fetus Movement Comments U/S of 05/10/25, FHT-150, vivien centa posteriorno previa, AFV-normal, no abnormalites noted. Flowsheet Date 06/11/2025 Barker Score Blood Edema Fundus Height Fundus Units Glucose Ketones Leukocytes Nitrite Labor Signs Protein Cervic Dilation Cervic Effacement Cervic Station 26 cm 1+ trace Negative trace Type Weight in lbs Pre/Post Dialysis Refused Weight 187.441393259997 BP Diastolic BP Location Tested BP Systolic BP Type 64 118 sitting Fetus Heart Rate Present A 152 Present Fetus Movement A Yes Comments constipation, occ headache, heartburn Flowsheet Date 07/07/2025 Barker Score Blood Edema Fundus Height Fundus Units Glucose Ketones Leukocytes Nitrite Labor Signs Protein Cervic Dilation Cervic Effacement Cervic Station Type Weight in lbs Pre/Post Dialysis Refused BP Diastolic BP Location Tested BP Systolic BP Type Fetus Heart Rate Present Fetus Movement Comments Flowsheet Date 07/07/2025 Barker Score Blood Edema Fundus Height Fundus Units Glucose Ketones Leukocytes Nitrite Labor Signs Protein Cervic Dilation Cervic Effacement Cervic Station 29 cm none trace Negative neg Type Weight in lbs Pre/Post Dialysis Refused Weight 190.555125324581 BP Diastolic BP Location Tested BP Systolic BP Type 64 118 sitting Fetus Heart Rate Present A 146 Present Fetus Movement A Yes Comments glucose today, nausea, const ipation, mild edema, heartburn Flowsheet Date 07/07/2025 Barker Score Blood Edema Fundus Height Fundus Units Glucose Ketones Leukocytes Nitrite Labor Signs Protein Cervic Dilation Cervic Effacement Cervic Station Type Weight in lbs Pre/Post Dialysis Refused BP Diastolic BP Location Tested BP Systolic BP Type Fetus Heart Rate Present Fetus Movement Comments Flowsheet Date 07/21/2025 Barker Score Blood Edema Fundus Height Fundus Units Glucose Ketones Leukocytes Nitrite Labor Signs Protein Cervic Dilation Cervic Effacement Cervic Station 31 cm trace trace Negative trace Type Weight in lbs Pre/Post Dialysis Refused Weight 193.861499488860 BP Diastolic BP Location Tested BP Systolic BP Type 64 122 sitting Fetus Heart Rate Present A 140 Present Fetus Movement A Yes Comments nausea, constipation Flowsheet Date 08/04/2025 Barker Score Blood Edema Fundus Height Fundus Units Glucose Ketones Leukocytes Nitrite Labor Signs Protein Cervic Dilation Cervic Effacement Cervic Station 30 cm none trace Negative Type Weight in lbs Pre/Post Dialysis Refused Weight 194.475159142817 BP Diastolic BP Location Tested BP Systolic BP Type 68 124 sitting Fetus Heart Rate Present A 156 Present Fetus Movement A Yes Comments heartburn, low back pain rig ht side is worse, fatigue, knot behind left ear and neck Flowsheet Date 08/18/2025 Barker Score Blood Edema Fundus Height Fundus Units Glucose Ketones Leukocytes Nitrite Labor Signs Protein Cervic Dilation Cervic Effacement Cervic Station none trace Negative trace Type Weight in lbs Pre/Post Dialysis Refused Weight 198.783486468570 BP Diastolic BP Location Tested BP Systolic BP Type 74 118 sitting Fetus Heart Rate Present A 150 Present Fetus Movement A Yes Comments N/V, headache, heartburn, lo w back pain, Flowsheet Date 08/18/2025 Barker Score Blood Edema Fundus Height Fundus Units Glucose Ketones Leukocytes Nitrite Labor Signs Protein Cervic Dilation Cervic Effacement Cervic Station Type Weight in lbs Pre/Post Dialysis Refused BP Diastolic BP Location Tested BP Systolic BP Type Fetus Heart Rate Present Fetus Movement Comments 09/16/25, epi cons ult -09/01/25, (Juaquin) faxed and pt is aware Flowsheet Date 09/01/2025 Barker Score Blood Edema Fundus Height Fundus Units Glucose Ketones Leukocytes Nitrite Labor Signs Protein Cervic Dilation Cervic Effacement Cervic Station 2+ none Negative Heron Cronin trace Type Weight in lbs Pre/Post Dialysis Refused Weight 204.822447460800 BP Diastolic BP Location Tested BP Systolic BP Type 70 124 sitting Fetus Heart Rate Present A 164 Present Fetus Movement A Yes Comments abdominal pain/cramping,cons tipation, felice, low back pain, heartburn, group B today Flowsheet Date 09/06/2025 Barker Score Blood Edema Fundus Height Fundus Units Glucose Ketones Leukocytes Nitrite Labor Signs Protein Cervic Dilation Cervic Effacement Cervic Station Type Weight in lbs Pre/Post Dialysis Refused BP Diastolic BP Location Tested BP Systolic BP Type Fetus Heart Rate Present Fetus Movement Comments Group B strep NegativeOB rec ords sent Flowsheet Date 09/08/2025 Barker Score Blood Edema Fundus Height Fundus Units Glucose Ketones Leukocytes Nitrite Labor Signs Protein Cervic Dilation Cervic Effacement Cervic Station 36 cm 1+ trace Heron Cronin 1+ Type Weight in lbs Pre/Post Dialysis Refused Weight 204.200886880338 BP Diastolic BP Location Tested BP Systolic BP Type 68 132 Fetus Heart Rate Present A 164 Present Fetus Movement A Yes Comments low back pain, nausea, cramp s, heavy vaginal discharge, vaginal pressure, swelling Flowsheet Date 09/15/2025 Barker Score Blood Edema Fundus Height Fundus Units Glucose Ketones Leukocytes Nitrite Labor Signs Protein Cervic Dilation Cervic Effacement Cervic Station 38 cm trace none Negative trace Type Weight in lbs Pre/Post Dialysis Refused Weight 211.814040476221 BP Diastolic BP Location Tested BP Systolic BP Type 64 124 sitting Fetus Heart Rate Present A 158 Present Fetus Movement A Yes Comments nausea, mild edema, low back /hip pain Menstrual History Last Menstrual Date Menses Monthly On Bcp Conception Prior Menses Frequency Hcg Plus Date Menarche Onset Age Genetic Screening And Infection History Question Response Note Patient's Age Will Be 35 Years Or Older At Estim ated Date of Delivery false Thalassemia (Mongolian, Macedonian, Mediterranean, Or Background): MCV < 80 false Neural Tube Defect (Meningomyelocele, Spina Bifi da, Or Anencephaly) false Congenital Heart Defect false Down Syndrome false Angel-Sachs (eg, Taoist, Cajun, Argentine-Lucas) f alse Iker Disease false Sickle Cell Disease Or Trait () false Hemophilia Or Other Blood Disorders false Muscular Dystrophy false Cystic Fibrosis false [place] Ch[place] false Intellectual Disability/Autism false If Yes, Was Person Tested For Fragile X? false Other Inherited Genetic Or Chromosomal Disorder false Maternal Metabolic Disorder (eg, Type 1 Diabetes , PKU) false Patient Or Baby's Father Had A Child With Defects Not Listed Above false Recurrent Loss, Or A Stillbirth false Medications (including Suppl ements, Vitamins, Herbs, OTC Drugs), Illicit/Recreational Drugs, Alcohol false If Yes, Agent(s) And Strength/Dosage false Any Other Genetic History false Live With Someone With TB Or Exposed To TB false Patient Or Partner Has History Of Genital Herpes false Rash Or Viral Illness Since Last Menstrual Perio d false History Of STD, Gonorrhea, Chlamydia, HPV, Syphi lis false Other Infection History false History of HIV false History of Hepatitis false Prior GBS-infected child false Hemoglobinopathy Or Carrier false Other Structural Defect false Recent Travel History Outside of Country false Mental Retardation/Autism false Delivery Information Delivery Date Delivery Type Labor Anesthesia Weeks Gestation Incision Type Labor Labor Length Hrs Delivered By Post Complications Tubal Sterilization Discharge Date Comments Discharge Information Feeding Method Contraceptive Method Maternal HG B and HCT Levels
--- OUTSIDE RECORDS SUMMARY | 2025-09-16 05:11 | XMS_ITS | Clinical Summary ---
Author Organization [facility] Address [address] 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 Gender Identity Not on file Sexual Orientation Not on file Last Filed Vital Signs Vital Sign Reading Time Taken Comments Blood Pressure 90/60 03/02/2019 2:53 PM CDT Pulse 105 03/02/2019 2:53 PM CDT Temperature 36.7 C (98 F) 03/02/2019 2:53 PM CDT Respiratory Rate 20 03/02/2019 2:53 PM CDT Oxygen Saturation - - Inhaled Oxygen Concentration - - Weight 68 [...] VACCINES (1 - 3-dose SCDM series) 2023 INFLUENZA VACCINE (#1) 2025 Care Teams Critical Care Physician Assistant Relationship Specialty Start Date End Date Sherin Francisco MD [address] [phone] PCP - General Family Practice 10/16/16
--- OUTSIDE RECORDS SUMMARY | 2025-09-16 05:11 | XMS_ITS | Data Portability ---
Author Organization [place] - [facility] Mcgee [facility] Address [address] [address] Assessment Encounter Date Assessment Date Assessment LastModified by Organization Details LastModified Time 08/18/2025 08/18/2025 - 30-year-old female with a history of a previous blood clot presenting for routine evaluation during her third trimester at 34 weeks gestation. - No complications reported; blood pressure and urinalysis normal. 34 Weeks Gestation Of : - Continue routine care; monitor weight and vitals. - Advise on diet and light exercise. [email or web address] Not available 08/18/2025 11:07:32 Plan of Treatment Reminders Order Date Submit Date Provider Last Modified By Organization Details Last Modified Time Details Appointments RETURN OB 2024 09:20A M Mt Berrios MD Not available Not available Not available Lab streptoco ccus group B, culture, unspecifi ed specimen 2024 025 [facility], [address] [facility] , [facility] [address], [place], [address], 09/04/2025 09:47:55 Referral None recorded. Procedures None recorded. Surgeries None recorded. Imaging None recorded. Medication Orders None recorded. Patient TargetsNo targets recorded. Patient Instructions Encounter Date Encounter Id Patient Instructions Last Modified By Organization Details Last Modified Time 08/18/2025 [id number] - Maintain a balanced diet and regular, light physical activity tailored to . - Monitor for any swelling or pain in the arms or legs and seek medical attention if they occur. - Attend all scheduled appointments for regular monitoring. - Be aware of the amount of weight gained and discuss any concerns during the next visit. - Rest adequately and avoid excessive stress. [email or web address] Not available 08/18/2025 11:07:34 We discussed the current status of the , which is progressing normally. I detailed the importance of monitoring weight gain, maintaining normal blood pressure, and the relevance of urine analyses. I urged regular routine check-ups and adherence to dietary and lifestyle recommendations. We also talked about the need for support and preparations once the baby arrives to ease the transition. We discussed the risks of a including the risks of bleeding, infection, and damage to intra-abdominal organs. She has no further questions and wishes to proceed. [email or web address] Not available 08/18/2025 11:22:42 Reason for Referral None Reported. Results Created Date Observation Date Name Description Value Unit Range Abnormal Flag Note LastModifiedBy Organization Detail LastModifiedTime 07/07/2007/07/2025 CBC WBC 7.2 x10 4.0-10 .5 Not Available [facility] [address] [address], [place], [address], 07/07/2025 10:43:30 07/07/20 25 07/07/2025 CBC RBC 4.24 x10 3.50-5 .50 Not Available [facility] [address] [facility] [address], [place], [address], 07/07/2025 10:43:30 07/07/20 25 07/07/2025 CBC HGB 12.1 g/dL 12.0-1 6.0 Not Available [facility] [address] [facility] [address], [place], [address], 07/07/2025 10:43:30 07/07/20 25 07/07/2025 CBC HCT 37.1 % 37.0-4 7.0 Not Available [facility] [address] [facility] [address], [place], [address], 07/07/2025 10:43:30 08/20/20 25 07/07/2025 CBC MCV 87.6 fL 80.0-9 9.9 Not Available [facility] [address] [facility], [place], [address], 07/07/2025 10:43:30 07/07/20 25 07/07/2025 CBC MCH 28.4 pg 27.0-3 2.0 Not Available [facility] [address] [facility] [address], [place], [address], 07/07/2025 10:43:30 07/07/20 25 07/07/2025 CBC MCHC 32.5 g/dL 32.0-3 6.0 Not Available [facility] [address] [facility] [address], [place], [address], 07/07/2025 10:43:30 07/07/20 25 07/07/2025 CBC RDW 13.4 % 11.5-1 4.5 Not Available [facility] [address] [facility] [address], [place], [address], 07/07/2025 10:43:30 07/07/20 25 07/07/2025 CBC plt 238.7 x10 140.0- 451.0 Not Available [facility] [address] [facility] [address], [place], [address], 07/07/2025 10:43:30 07/07/20 25 07/07/2025 CBC lymphocytes % 16.0 % 20.0-5 0.0 low Not Available [facility] [address] [facility] [address], [place], [address], 07/07/2025 10:43:30 07/07/20 25 07/07/2025 CBC granulcytes % 77.8 % 30.0-7 0.0 high Not Available [facility] [address] [facility] [address], [place], [address], 07/07/2025 10:43:30 07/07/20 25 07/07/2025 CBC monocytes % 5.2 % 2.0-16 .0 Not Available [facility] [address] [address], [place], [address], 07/07/2025 10:43:30 07/07/20 25 07/07/2025 CBC granulcytes# 5.6 x10 Not Gin ilable [facility] [address] [address], [place], [address], 07/07/2025 10:43:30 07/07/20 25 07/07/2025 CBC lymphocytes # 1.1 x10 Not Available [facility] [address] [address], [place], [address], 07/07/2025 10:43:30 07/07/20 25 07/07/2025 CBC monocytes # 0.4 x10 Not Avai lable [facility] [address] [address], [place], [address], 07/07/2025 10:43:30 07/07/20 25 07/07/2025 GLUCO SE SCREE N glucose screen 167.0 mg/dL Not Available [address] [address], [place], [address], 07/07/2025 10:56:46 07/12/20 25 07/12/2025 gluco se marlene ance test, gesta abdullahi l, 3-yehuda r Fasting 90 Not Available [facility] [address] [place], [address], 07/12/2025 16:09:30 07/12/20 25 07/12/2025 gluco se marlene ance test, gesta abdullahi l, 3-yehuda r 1-Hour 183 Not Available [facility] [address] [place], [address], 07/12/2025 16:09:30 07/12/20 25 07/12/2025 gluco se marlene ance test, gesta abdullahi l, 3-yehuda r 2-Hour 162 Not Available [facility] [address] [place], [address], 07/12/2025 16:09:30 07/12/20 25 07/12/2025 gluco se marlene ance test, gesta abdullahi l, 3-yehuda r 3-Hour 105 Not Available [facility] [address] [place], [address], 07/12/2025 16:09:30 09/01/20 25 09/04/2025 STREP TOCOC CUS, GROUP B CULTU RE streptococcu s, group B culture SEE NOTE STREP TOCOC CUS, GROUP B CULTU RE Micro Numbe r: [id number] Test Statu s: Final Speci men Sourc e: Vagin al/an orect al Speci men Quali ty: Adequ ate Resul t: No group B Strep tococ cus isola redd Note per CDC guide lines optim al recov lonnie is achie shiv by swabb ing both the lower vagin a and rectu m (thro ugh the anal sphin cter) . Not Available [facility] [address] [place], [address], 09/04/2025 09:47:54 Result Notes None recorded. Problems Name Problem SNOMED Code Status Onset Date Resolution Date Notes Provider Name and Address Organization Details Recorded Time 07526778 Active 2024 [facility] Nausea and vomiting in Active 2024 [facility] 09:[facility]17 Nausea and vomiting in Active 2024 NICOLE HIGH js [facility] 5 09:58:18 Normal in multigravid a 7273305678631 06 Active 2024 [facility] 12:47:12 Normal 65506170 Active 2024 [facility]KERICK LERNER [facility] 18:39:01 Second trimester 67249253 Active 2024 ZAK EDUARDA [facility] 5 14:09:53 Problem Notes None recorded. Procedures Surgical History Date Name Laterality Status Provider Name and Address Organization Details Recorded Time 03/09/20 Date of Last Pap Smear completed [facility] 03/15/2025 18:03:47 03/09/20 25 liquid based cervical cytology screening completed [facility] 03/15/2025 18:04:04 09/21/20 18 section completed [facility] 02/03/2025 14:25:40 Imaging Results None recorded. Procedure Notes None recorded. Medical Equipment None Reported. Allergies Allergen ID Allergen Name Allergen Category Reaction Reaction Severity Criticality Documentation Date Start Date Code Code System Note Provider Name and Address Organization Details Recorded Time 18338 Bactrim medicatio n Not available Not available Not available 02/03/2025 67333 9 RxNorm NICOLE MCLEAN Price [facility], LRamonitaL.CRamonita 14:19:54 Medications Name Sig Start Date Stop [...] Details Last Updated DateTime 5 162.56 cm 33.4 kg/m2 34861.7 2 g 99 % 99 % 77 /min 18 /min 98 [degF] 124/68 mm[Hg] NICOLE MCLEAN [facility], LRamonitaLSmita 5 10:44:15 Date Recorded Body height Body mass index (BMI) Body weight Oxygen saturation Oxygen saturation in Arterial blood by Pulse oximetry Heart rate Respiratory rate Body temperature Systolic And Diastolic Provider Name and Address Organization Details Last Updated DateTime 5 162.56 cm 34 kg/m2 34001.9 9 g 99 % 99 % 81 /min 18 /min 98.6 [degF] 118/74 mm[Hg] NICOLE MCLEAN [facility] LGarry 5 10:29:23 Date Recorded Body height Body mass index (BMI) Body weight Oxygen saturation Oxygen saturation in Arterial blood by Pulse oximetry Heart rate Respiratory rate Body temperature Systolic And Diastolic Provider Name and Address Organization Details Last Updated DateTime 5 162.56 cm 35.1 kg/m2 66165.9 4 g 99 % 99 % 89 /min 18 /min 98.1 [degF] 124/70 mm[Hg] NICOLE GARCIAAKEvin [facility] LRamonitaLSmita 5 10:49:24 Date Recorded Body height Body mass index (BMI) Body weight Respiratory rate Heart rate Oxygen saturation Oxygen saturation in Arterial blood by Pulse oximetry Body temperature Systolic And Diastolic Provider Name and Address Organization Details Last Updated DateTime 162.56 cm 35 kg/m2 20999.5 4 g 18 /min 112 /min 98 % 98 % 98.2 [degF] 132/68 mm[Hg] ZAK LERNER [facility] 11:08:43 Date Recorded Body height Body mass index (BMI) Body weight Oxygen saturation Oxygen saturation in Arterial blood by Pulse oximetry Heart rate Respiratory rate Body temperature Systolic And Diastolic Provider Name and Address Organization Details Last Updated DateTime 162.56 cm 36.2 kg/m2 03940.9 9 g 98 % 98 % 81 /min 18 /min 98.6 [degF] 124/64 mm[Hg] NICOLE HIGH [facility] L.L[facility]CR[facility]ita 10:51:16 Social History Question Answer Notes LastModified by Contactual Details LastModified Time Tobacco Smoking Status Never Smoker NICOLE weinstein [facility] 02/03/2025 14:24:53 Are You Blind Or Do [...] Functional Status Question Answer Note LastModified by Contactual Details LastModified Time Do you use any [...] ICD10 Code Diagnosis IMO Codes Diagnosis Note [id number] Mt Berrios MD [facility] [address] [place] [address] 46071-766 5 02/03/2025 14:11:39 02/03/2025 15:40:02 Normal in multigravida 0271163070 74247 Z34.80 [id number] Mt Berrios MD [facility] [address] [place] [address] [phone] 5 02/16/2025 09:42:50 02/16/2025 17:44:28 [id number] Mt Berrios MD [facility] [address] [place] [address] [phone] 5 03/09/2025 09:54:42 03/09/2025 10:56:04 Normal in multigravida 3316077798 81127 Z34.80 54900858 Gestation period, 11 weeks 33504085 Z3A.11 7791940 [id number] Mt Berrios MD [facility] [address] [place] [address] [phone] 5 04/07/2025 10:53:08 05/17/2025 08:45:04 Normal 23976716 Z34.82 47215121 Gestation period, 15 weeks 3963642 Z3A.15 5747825 [id number] Mt Berrios MD [facility] [address] [place] [address] [phone] 5 05/10/2025 10:23:04 05/10/2025 16:36:20 [id number] Mt Berrios MD [facility] [address] [place] [address] [phone] 5 05/11/2025 13:51:50 05/11/2025 14:27:45 Gestation period, 20 weeks 96625453 Z3A.20 8355198 Second tri mester 96456054 Z34.92 403706 [id number] Mt Berrios MD [facility] [address] [place] [address] [phone] 5 06/11/2025 11:28:15 06/11/2025 12:42:20 Multigravida 901864954 Z34.82 49977913 Gestation period, 25 weeks 44562657 Z3A.25 5501147 [id number] Mt Berrios MD [facility] [address] [place] [address] [phone] 5 07/07/2025 09:19:16 07/08/2025 13:08:25 Normal in multigravida 3478121905 84509 Z34.80 22066292 [id number] Mt Berrios MD [facility] [address] [place] [address] [phone] 5 07/07/2025 09:24:42 07/07/2025 10:25:57 58553468 Z34.90 Gestation period, 28 weeks 07507471 Z3A.28 9375943 [id number] Mt Berrios MD [facility] [address] [place] [address] [phone] 5 07/07/2025 12:41:45 07/10/2025 03:58:19 [id number] Mt Berrios MD [facility]) [address] [place] [address] [phone] 5 07/21/2025 10:19:44 08/09/2025 08:08:14 Multigravida 130179305 Z34.83 99014233 Gestation period, 30 weeks 13685313 Z3A.30 2374061 [id number] Mt Berrios MD [facility] [address] [place] [address] [phone] 5 08/04/2025 10:18:58 08/04/2025 11:37:28 Multigravida 914219407 Z34.83 68167113 Gestation period, 32 weeks 4165659 Z3A.32 9664606 [id number] Mt Berrios MD [facility] [address] [place] [address] [phone] 5 08/18/2025 10:15:42 08/18/2025 11:27:30 Multigravida 035153653 Z34.83 97389076 - Assess for complicati ons linked to prior blood clot. - Educate on warning signs and ensure regular follow-ups . Gestation period, 34 weeks 39792467 Z3A.34 9724935 [id number] Mt Berrios MD [facility] [address] [place] [address] [phone] 5 09/01/2025 10:10:22 09/01/2025 11:23:15 73486596 Z34.90 Gestation period, 36 weeks 57179924 Z3A.36 4810040 [id number] Mt Berrios MD [facility] [address] [place] [address] [phone] 5 09/08/2025 10:27:17 09/08/2025 11:43:48 13151261 Z34.90 Gestation period, 37 weeks 91705337 Z3A.37 4592216 [id number] Mt Berrios MD [facility] [address] [place] [address] [phone] 5 09/15/2025 10:19:54 09/15/2025 11:20:40 73021105 Z34.90 Gestation period, 38 weeks 92920851 Z3A.38 3116859 Health Concerns Section Related Observation LastModified by Organization Detai ls LastModified Time None Recorded Concern Status LastModified by Organization Details LastModified Time None Recorded Advance Directives Directive None Recorded Payers Insurance Date Sequence Insurance Name Policy Number Policy Marquez Covered Member ID Marquez Member ID Guarantor Name 09/12/2025 1 [facility] [id number] Vargas Che [id number] Herminia Che Notes Date Note Type Note Provider Name and Address Organization Details Recorded Time 08/04/20 25 text/htm l jr ob routineReported by PatientHPIFor associated symptoms, patient reportsnauseaandheadachebut reportsno abdominal pain,no cramping,no contractions,normal movement,no bleeding,no vaginal discharge,no vaginal/vulvar itching or irritation,no dysuria,no frequency,no urgency,no hematuria,no fever,no emesis,no constipation,no diarrhea/loose stool,no edema,no visual changes,no dizziness, andno breathlessness.heartburn, low back pain worse on right side,Pt denies any alcohol, drug or tobacco useROS as noted in the HPI History- pt had a blood clot in her left arm 2021, Pt states last Saturday07/31/25 she noticed a knot behind her left ear and neck, pt states she is more fatigued and nauseated. Mt Berrios MD [address] [place] [address], [phone], [facility] [place], Em[place]. 08/04/2025 11:30:06 08/18/20 25 text/htm christie armstrong ob routineReported by PatientHPIFor associated symptoms, patient reportsnausea,emesis, andheadachebut reportsno abdominal pain,no cramping,no contractions,normal movement,no bleeding,no vaginal discharge,no vaginal/vulvar itching or irritation,no dysuria,no frequency,no urgency,no hematuria,no fever,no constipation,no diarrhea/loose stool,no edema,no visual changes,no dizziness, andno breathlessness.heartburn, low back pain,Pt denies any alcohol, drug or tobacco useROS as noted in the HPI The patient is a 30-year-old female presenting for a routine check-up at 34 weeks gestation. 34 weeks gestation of : - Currently 34 weeks with 24 pounds weight gain reported. - Blood pressure and urine are normal. Multigravida: - The patient is in the third trimester and has a history of a blood clot in the left arm from 2021. History- pt had a blood clot in her left arm 2021, Mt Berrios MD [address] [place] [address], [phone], [facility] [place], [place]. 08/18/2025 11:23:05 09/01/20 25 text/htm christie armstrong ob routineReported by PatientHPIFor associated symptoms, patient reportsabdominal pain,cramping,vaginal discharge (increased),constipation, andedemabut reportsno contractions,normal movement,no bleeding,no vaginal/vulvar itching or irritation,no dysuria,no frequency,no urgency,no hematuria,no fever,no nausea,no emesis,no diarrhea/loose stool,no visual changes,no headache,no dizziness, andno breathlessness.heartburn, low back pain,Pt denies any alcohol, drug or tobacco useROS as noted in the HPI The patient is a 30-year-old female presenting for a routine check-up at 36.6 weeks gestation. Multigravida:- The patient is in the third trimester and has a history of a blood clot in the left arm from 2021. History- pt had a blood clot in her left arm 2021, Mt Berrios MD [address] [place] [address], [phone], [facility] [place] 09/01/2025 11:22:21 09/08/20 text/htm christie armstrong ob routineReported by PatientHPIFor associated symptoms, patient reportscramping,contractions (heron bell),vaginal discharge (increased),nausea, andedemabut reportsno abdominal pain,normal movement,no bleeding,no vaginal/vulvar itching or irritation,no dysuria,no frequency,no urgency,no hematuria,no fever,no emesis,no constipation,no diarrhea/loose stool,no visual changes,no headache,no dizziness, andno breathlessness.heartburn, low back pain, vaginal pressurePt denies any alcohol, drug or tobacco useROS as noted in the HPI The patient is a 30-year-old female presenting for a routine check-up at 37.6 weeks gestation. Multigravida:- The patient is in the third trimester and has a history of a blood clot in the left arm from 2021. History- pt had a blood clot in her left arm 2021, Mt Berrios MD [address] [place] [address], [phone], [facility] [place] 09/08/2025 11:43:31 09/15/20 text/htm christie armstrong ob routineReported by PatientHPIFor associated symptoms, patient [...] her left arm 2021, Mt Berrios MD [address] [place] [address], [phone], [facility] [place], [facility] 09/15/2025 11:18:01 OBGyn Episode Ob Episode Information Episode Created Date Number of Fetuses Patient Bloodtype Patient rh Status Prepregnancy Weight lbs Domestic Partner Domestic Partner Phone Father Name [employer] Teacher Status 02/04/20 25 1 CLOSED Fetus Data First Name Last Name Admitted to NICU Weight (g) Sex Living Outcome Pediatric Complications Fetus ID Race Codes Race Delivery Type 3203.26 6704 M Full Term 7624 Carlos Eduardo Calculation Initial Carlos Eduardo Date Initial Exam Date Initial Exam Provider Initial Ultrasound Date Last Menstrual Period Date Ultra Sound Weeks Gestation 0 Eighteen To Twenty Week Carlos Eduardo Update Ultra Sound Date Fundal Height At Umbil Quickening Date Ultra Sound Latest Weeks Gestation Final Carlos Eduardo Confirmed By Final Carlos Eduardo Confirmed Date Final Carlos Eduardo Date Ultra Sound Latest Days Gestation 0 0 Menstrual History Last Menstrual Date Menses Monthly On Bcp Conception Prior Menses Frequency Hcg Plus Date Menarche Onset Age Delivery Information Delivery Date Delivery Type Labor Anesthesia Weeks Gestation Incision Type Labor Labor Length Hrs Delivered By Post Complications Tubal Sterilization Discharge Date Comments 8 38 Pt was stuck in her pelvisKas hton Discharge Information Feeding Method Contraceptive Method Maternal HG B and HCT Levels Ob Episode Information Episode Created Date Number of Fetuses Patient Bloodtype Patient rh Status Prepregnancy Weight lbs Domestic Partner Domestic Partner Phone Father Name Geopolit[employer] Teacher Status 02/04/20 25 1 A Positive Vargas OPEN Fetus Data [...] Code Not e Normal in multigravida 03/08/2025 [id number] Nausea and vomiting in 02/10/2025 3656479015 Normal 04/06/2025 30139352 Second trimester 05/11/2025 59 [id number] Carlos Eduardo Calculation Initial Carlos Eduardo Date [...] Weight in lbs Pre/Post Dialysis Refused Weight 174.509303094742 BP Diastolic BP Location Tested BP Systolic [...] Weight in lbs Pre/Post Dialysis Refused Weight 170.895021753097 BP Diastolic BP Location Tested BP Systolic BP Type 76 122 sitting Fetus Heart Rate Present A 172 Present Fetus Movement Comments NOB, nausea,vomiting, headac he,dizziness Flowsheet Date 04/07/2025 Barker Score Blood Edema Fundus Height Fundus Units Glucose Ketones Leukocytes Nitrite Labor Signs Protein Cervic Dilation Cervic Effacement Cervic Station none 1+ trace Type Weight in lbs Pre/Post Dialysis Refused Weight 177.101889893792 BP Diastolic BP Location Tested BP Systolic [...] Weight in lbs Pre/Post Dialysis Refused Weight 184.993256070753 BP Diastolic BP Location Tested BP Systolic [...] Weight in lbs Pre/Post Dialysis Refused Weight 187.082162625300 BP Diastolic BP Location Tested BP Systolic [...] Weight in lbs Pre/Post Dialysis Refused Weight 190.246040591848 BP Diastolic BP Location Tested BP Systolic [...] Weight in lbs Pre/Post Dialysis Refused Weight 193.055483949372 BP Diastolic BP Location Tested BP Systolic BP Type 64 122 sitting Fetus Heart Rate Present A 140 Present Fetus Movement A Yes Comments nausea, constipation Flowsheet Date 08/04/2025 Barker Score Blood Edema Fundus Height Fundus Units Glucose Ketones Leukocytes Nitrite Labor Signs Protein Cervic Dilation Cervic Effacement Cervic Station 30 cm none trace Negative Type Weight in lbs Pre/Post Dialysis Refused Weight 194.944051809937 BP Diastolic BP Location Tested BP Systolic [...] Weight in lbs Pre/Post Dialysis Refused Weight 198.923968237694 BP Diastolic BP Location Tested BP Systolic [...] Effacement Cervic Station 2+ none Negative Heron Bell trace Type Weight in lbs Pre/Post Dialysis Refused Weight 204.015197821979 BP Diastolic BP Location Tested BP Systolic [...] Effacement Cervic Station 36 cm 1+ trace Odessa Bell 1+ Type Weight in lbs Pre/Post Dialysis Refused Weight 204.781455922996 BP Diastolic BP Location Tested BP Systolic [...] Weight in lbs Pre/Post Dialysis Refused Weight 211.548125720553 BP Diastolic BP Location Tested BP Systolic [...] Estim ated Date of Delivery false Thalassemia (Moldovan, Jordanian, Mediterranean, Or Background): MCV < 80 false Neural Tube Defect (Meningomyelocele, Spina Bifi da, Or Anencephaly) false Congenital Heart Defect false Down Syndrome false Angel-Sachs (eg, Evangelical, Cajun, Tamazight-Bermudian) f alse Iker Disease false Sickle Cell Disease Or Trait () false Hemophilia Or Other Blood Disorders false Muscular Dystrophy false Cystic Fibrosis false [place]'s Chorea false Intellectual Disability/Autism false If Yes, [...]
[2025-09-16 05:53] LABS: Hematocrit 34.8 % (36-47); Hemoglobin 10.80 g/dL (11.27-16.99); Mean Corpuscular HGB Conc 31.0 g/dL (30-55); Mean Corpuscular Hemoglobin 25.2 pg (27-33); Mean Corpuscular Volume 81.1 fl (85-98); Nucleated Red Blood Cells % 0 %; Platelet Count 267 10^3/cmm (157-399); Red Blood Count 4.29 10^6/uL (3.85-5.65); White Blood Count 6.84 10^3/uL (3.29-11.43)
--- NOTE | 2025-09-16 06:36 | P.HP_ITS ---
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 She has had an unremarkable . She has had consistent care. We discussed the pros and cons of attempting a versus a repeat section. After discussion of the risks and benefits, she elected to proceed with a repeat section. Also of note. The patient does have a history of a DVT with an eliciting factor. She was not placed on DVT prophylaxis during her . Review of Systems 2 General: Reports: 10 or more systems reviewed and unremarkable except in HPI and below Const: Reports: fatigue; Denies: fever(s) Eyes: Denies: change in vision Card: Denies: chest pain Musc: Reports: back pain Rodrigo/Lymph: Denies: easy bruising Medications/Allergies Home Medications ?Medication ?Instructions ?Recorded ?Confirmed ?Last Taken ?Type ondansetron HCl 4 mg tablet mg 09/16/25 09/15/25 Hist ory Allergies Allergy/AdvReac Type Severity Reaction Status Date / Time sulfamethoxazole (From Allergy Mild Hives Verified 04/05/25 09:59 Bactrim) trimethoprim (From Bactrim) Allergy Mild Hives Verified 04/05/25 09:59 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 2 PFSH: Medical History Otitis media Deep vein thrombosis, upper left extremity 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 RBBB (right bundle branch block) Surgical History S/P section Family History Father Hypertension Grandmother Hypertension Stroke Social History Smoking and tobacco/nicotine status: never used tobacco/nicotine Alcohol intake: never Substance/Drug Use: never Adopted: No Caregiver/support person: No Lives independently: No Household members: spouse Marital status: service: No Current occupational status: unemployed Sexually active: Yes Do you think of yourself as: Straight/Heterosexual Current gender identity: Female Personal Safety: Do you feel safe at home: Yes Victim of physical abuse: No Victim of emotional abuse: No Victim of sexual abuse: No Would you like help information on resources?: No Care Additional Care Information: Her blood type is a positive. Her antibody screen is negative. She is rubella immune. She passed her 3-hour glucose screen. She is GBS negative. The remainder of her infectious disease profile is within normal limits. Vitals/I&O/Wt Last Vital Signs Pulse 81 09/16/25 05:59 BP 123/93 09/16/25 05:59 Weight last 48 hrs Weight 211 lb Physical Exam 2 Const: COMMON NORMALS: patient oriented x3 and alert HENMT: COMMON NORMALS: moist oral mucous membranes HEAD & SCALP: normal to inspection Chest: COMMONS NORMALS: normal inspection of the chest Resp: COMMON NORMALS: clear to auscultation bilaterally AUSCULTATION: clear to auscultation bilaterally Cardio: COMMON NORMALS: regular rate and regular rhythm RATE: regular rate RHYTHM: regular rhythm GI: INSPECTION: Yes normal to inspection and Yes other (Gravid) Extremity: COMMON NORMALS: normal to inspection GENERAL: Yes edema (Trace) Neuro: COMMON NORMALS: patient oriented x3, moves all extremities and no sensory deficits noted SENSORIUM/ORIENTATION: Yes alert Psych: COMMON NORMALS: mental status grossly normal Skin: COMMON NORMALS: no rashes or lesions noted GENERAL SKIN EXAM: no rashes or lesions noted Data 09/16/25 05:25 Results Labs OB ([facility]): 2 Blood Type A Positive Today Antibody Screen Negative Today Hct, (36-47) 34.8 % L Today Hgb, (11.27-16.99) 10.80 g/dL L Today Rho(D) Type Rh positive Today Plt Count, (157-399) 267 10^3/cmm Today A&P Assessment and plan 1. History of : We will proceed with a routine scheduled low-transverse section. We will initiate low molecular weight heparin at a prophylactic dose 12 hours post . We will then plan her receiving 1 dose daily for 6 weeks. 2. 39 weeks gestation of : 3. History of DVT (deep vein thrombosis): PDMP PDMP Reviewed: Not Reviewed Attestations 2 Medical Necessity Statement*: I anticipate routine and post care Coding Level of Care Code Acute Code for Chg Fwd Diagnoses History of Z98.891 39 weeks gestation of Z3A.39 History of DVT (deep vein thrombosis) Z86.718
[2025-09-16] MEDS: ceFAZolin 2,000 mg SDV 2000 MG IVP (07:00)
--- NOTE | 2025-09-16 07:00 | P.ANESUD_ITS ---
Pre-Anesthetic Update Pre-Anesthetic Assessment: Date of Surgery/Procedure: 09/16/25 Proposed Procedure: Operation Date: 09/16/25 07:20 Proposed Procedures p Section Repeat 66737(Not Applicable) - Mt Berrios MD Any changes to Pre-Anesthetic Assessment?: No Changes from Pre- Anesthetic Assessment: none Labs Last 48hrs: Short CBC 09/16/25 Range/Units 05:25 WBC 6.84 (3.29-11.43) 10^ 3/uL Hgb 10.80 L (11.27-16.99) g/ dL Hct 34.8 L (36-47) % MCV 81.1 L (85-98) fl Plt Count 267 (157-399) 10^3/c mm Neut % (Auto) 62.6 % Neut # (Auto) 4.28 (1.8-7.7) 10^3/u L Blood Bank 09/16/25 05:25 Blood Type A Positive Rho(D) Type Rh positive Antibody Screen Negative Vitals: Pulse Rate 81 09/16/25 05:59 Pulse Rhythm Regular 09/16/25 05:21 Pulse Strength 3+ Normal 09/16/25 05:21 Respiratory Effort Spontaneous, Non- Labored 09/16/25 05:21 Respiratory Depth Normal 09/16/25 05:21 Respiratory Patter n Normal 09/16/25 05:21 Blood Pressure 123/93 09/16/25 05:59 Oxygen Delivery Me thod Room Air 09/16/25 05:21 Exam: Pre-Anes Outpt Exam: alert and oriented x 3 Cardiac Studies: Echocardiogram 01/22/22
[2025-09-16] MEDS: metoclopramide 5 mg/mL SDV 2 mL 10 MG IVP (07:01)
[2025-09-16] MEDS: citric acid-sodium citrate 30 mL UDC PO (07:01)
--- NOTE | 2025-09-16 08:25 | PM.OP ---
Operative Report Date of procedure: September 16, 2025 Pre-op diagnosis: 1. 30-year-old 2 para 1-0-0-1 at 39 weeks estimated gestational age presenting for a repeat scheduled section Post-op diagnosis: Status post low-transverse section Procedure done: Repeat low-transverse section Specimens removed/disposition: 1. Male infant with a weight of 6 pounds 7 ounces and Apgars of 7 and 9 2. Placenta with a three-vessel cord delivered intact Surgeon: Mt Berrios MD Estimated blood loss (mL): 500 Complications: None Procedure: The patient was brought back to the operating room where she was prepped and draped in usual sterile fashion. Anesthesia was found to be adequate. A lower transverse skin incision was then made with a #10 blade. I then dissected down to the underlying subcutaneous tissue until arriving at the prerectal fascia. The fascia was then nicked with the scalpel bilaterally. The fascial incisions were then carried laterally with Hancock scissors. Attention was then turned to the superior aspect of the incision which was grasped with kochers and tented up away from the underlying rectus abdominis muscles. The muscles were then dissected away from the fascia manually, and later with Hancock scissors. Attention was then turned to the inferior aspect of the incision, and the fascia was dissected away from the underlying muscle in similar fashion. The rectus abdominis muscles were then spread manually. The peritoneum was entered manually. Excellent visualization of the uterus was noted. A lower transverse uterine incision was then made with a #10 blade. Upon arriving at the intrauterine cavity, the uterine incision was then extended manually. The infant was noted to be in footling breech position. The baby was delivered without difficulty. After delivery of the head, the mouth and nose were suctioned at the site of the incision. There was no meconium. There was a nuchal cord x 2 which was reduced after delivery of the baby.. The cord was cut and clamped. The baby was then handed to the waiting nurse. The placenta was removed intact. The uterus was externalized. The intrauterine cavity was cleansed of any remaining debris. The uterine incision was reapproximated in 2 layers. The first layer was performed with 0 Vicryl in a running locked stitch. The second layer was an imbricating stitch also using 0 Vicryl. A [id number] stitch with 0 Vicryl x 2 were used to stop any remaining bleeding. The uterus was replaced into the abdomen. The peritoneum was then irrigated with warm saline. I reexamined the uterine incision and found it to be hemostatic. The rectus abdominis muscles were then reapproximated using 0 Vicryl in a running stitch. The fascia was then reapproximated using 0 Vicryl in running stitch. The subcutaneous tissue was then reapproximated using 0 Vicryl in a running stitch. The skin was reapproximated using derek. A sterile dressing was placed. All counts were correct x2. Both the mother and baby were in stable condition.
[2025-09-16] MEDS: BUPivacaine 0.5% INJ 30 mL INJECTION (08:28)
--- NOTE | 2025-09-16 08:40 | ANE.PACU2 ---
Inpatient post-anesthesia follow up: Airway intact: Yes Vital signs: Temperature 97.9 F Pulse Rate 94 Respiratory Rate 16 Blood Pressure 133/78 Pulse Oximetry 99 Oxygen Delivery Me thod Room Air Oxygen Flow Rate Fraction of Inspir ed Oxygen Hydration adequate: Yes Nausea and vomiting: No Pain level: 1 Mental status: Baseline
[2025-09-16] MEDS: ferrous sulfate EC 325 mg Tablet PO (20:30)
[2025-09-17 00:59] VITALS: BP 112/74; PULSE 78
[2025-09-17 03:48] VITALS: BP 111/66; PULSE 76
[2025-09-17] MEDS: PRENATAL VIT NO.130/IRON/FOLIC 1 EACH TABLET PO (05:16)
[2025-09-17 05:33] LABS: Hematocrit 27.7 % (36-47); Hemoglobin 8.60 g/dL (11.27-16.99); Mean Corpuscular HGB Conc 31.0 g/dL (30-55); Mean Corpuscular Hemoglobin 25.7 pg (27-33); Mean Corpuscular Volume 82.7 fl (85-98); Platelet Count 182 10^3/cmm (157-399); Red Blood Count 3.35 10^6/uL (3.85-5.65); White Blood Count 9.86 10^3/uL (3.29-11.43)
--- NOTE | 2025-09-17 08:46 | P.DS_ITS ---
Discharge Providers ELECTRONIC WARFARE TECHNICIAN Date of Admission: 09/16/25 05:05 Date of Discharge: 09/17/25 Attending Provider at Admission: Mt Berrios MD Attending Provider at Discharge: Mt Berrios MD Primary Care Provider: LUIS ALBERTO Santiago Diagnoses at Discharge Discharge Diagnosis 1. History of : 2. 39 weeks gestation of : 3. History of DVT (deep vein thrombosis): Reason for Visit Reason for Visit: Updated 09/01/2025 Hospital Course Hospital Course The patient presented to the hospital for a scheduled repeat low-transverse section. The was unremarkable. Her course was also been unremarkable. There have been no concerns. Her bleeding has been within normal limits. Her pain is well-controlled. She has passed flatus. She tolerated breakfast this morning. Because she has a history of a DVT she has been started on Lovenox 40 mg SQ daily. Information Peripartum Data: Delivery Method: Physical Exam Narrative: She is in no acute distress Lungs are clear auscultation bilaterally Her heart has a regular rate and rhythm Her fundus is below the umbilicus and firm Her dressing is clean, dry and intact Her extremities have trace edema Urinary Catheter Management: Reyes: Cath Placed During This Visit: yes, but has since been removed by the nurse Reason for Continuing Indwelling Catheter: Decision to DC Catheter Urinary Catheter Date of Insertion: 09/16/25 Urinary Catheter Time of Insertion: 07:15 Date Urinary Catheter Removed: 09/16/25 Time Urinary Catheter Discontinued: 22:22 Discharge Data Studies Completed and Pending Pending at discharge Category Date Time Status CBC Auto Diff [Complete Blood Count w/Auto] Routine Lab 09/17/25 12:00 Uncollected High Risk PP Hemorrhage Stat Lab 09/16/25 05:25 Received Laboratory Results WBC 9.86 10^3/uL (3.29-11.43) 09/17/25 05:20 RBC 3.35 10^6/uL (3.85-5.65) L 09/17/25 05:20 Hgb 8.60 g/dL (11.27-16.99) L 09/17/25 05:20 Hct 27.7 % (36-47) L 09/17/25 05:20 MCV 82.7 fl (85-98) L 09/17/25 05:20 MCH 25.7 pg (27-33) L 09/17/25 05:20 MCHC 31.0 g/dL (30-55) 09/17/25 05:20 RDW 15.4 % (12.1-15.1) H 09/17/25 05:20 Plt Count 182 10^3/cmm (157-399) D 09/17/25 05:20 MPV 10.4 fL (7.4-10.4) 09/17/25 05:20 Neut % (Auto) 62.6 % 09/16/25 05:25 Lymph % (Auto) 26.8 % 09/16/25 05:25 Linn % (Auto) 9.2 % 09/16/25 05:25 Eos % (Auto) 0.3 % 09/16/25 05:25 Baso % (Auto) 0.4 % 09/16/25 05:25 Neut # (Auto) 4.28 10^3/uL (1.8-7.7) 09/16/25 05:25 Lymph # (Auto) 1.8 10^3/uL (0.8-4.8) 09/16/25 05:25 Linn # (Auto) 0.6 10^3/uL (0.2-0.9) 09/16/25 05:25 Eos # (Auto) 0.0 10^3/uL (0.0-0.8) 09/16/25 05:25 Baso # (Auto) 0.0 10^3/uL (0.0-0.1) 09/16/25 05:25 Nucleated RBC % (auto) 0 % 09/16/25 05:25 Nucleated RBCs # 0.0 /100WBC 09/16/25 05:25 Blood Type A Positive 09/16/25 05:25 Rho(D) Type Rh positive 09/16/25 05:25 Antibody Screen Negative 09/16/25 05:25 Vitals Last Vital Signs Temp 97.9 F 09/16/25 08:10 Pulse 76 09/17/25 03:48 Resp 16 09/16/25 09:09 BP 111/66 09/17/25 03:48 Pulse Ox 99 09/16/25 08:40 O2 Del Method Room Air 09/16/25 08:40 Results Labs OB ([facility]): Blood Type A Positive 09/16/25 Antibody Screen Negative 09/16/25 Hct, (36-47) 27.7 % L Today Hgb, (11.27-16.99) 8.60 g/dL L Today Rho(D) Type Rh positive 09/16/25 Plt Count, (157-399) 182 10^3/cmm Δ Today Discharge Plan Discharge Patient Disposition: Home Condition: Stable Prescriptions: New hydrocodone-acetaminophen 5-325 mg Tablet 1 tab PO Q6H Qty: 28 0RF docusate sodium 100 mg Capsule 100 mg PO BID Qty: 20 0RF enoxaparin 40 mg/0.4 mL Syringe 40 mg SUBCUT Q24H Qty: 30 0RF Discontinued ondansetron HCl 4 mg tablet 4 mg PO BID Discharge Order = DC NOW: Discharge Order (Routine); Ordered 09/17/25 Ordered By: Mt Berrios Referrals: Mt Berrios MD [Physician, [facility]] - 09/22/25 Referral Note: Already has appt. Please coordinate with baby's appt. Discharge Diet: Usual diet Discharge Activity: Limit activity as instructed Patient Instructions: Opioid Safety, Patient Portal & Ashia Instructions Discharge Attestations ELECTRONIC WARFARE TECHNICIAN Time Spent in Discharge Care*: less than 30 min Coding Level of Care Code Acute Code for Chg Fwd Diagnoses History of Z98.891 39 weeks gestation of Z3A.39 History of DVT (deep vein thrombosis) Z86.718
[2025-09-17] MEDS: HYDROcodone-acetaminophen 5-325 mg Tablet PO ×2 (09:03→13:22)
[2025-09-17 10:25] VITALS: BP 129/93; PULSE 133
[2025-09-17] MEDS: ferrous sulfate EC 325 mg Tablet PO (10:30)
[2025-09-17 12:12] LABS: Hematocrit 28.2 % (36-47); Hemoglobin 8.80 g/dL (11.27-16.99); Mean Corpuscular HGB Conc 31.2 g/dL (30-55); Mean Corpuscular Hemoglobin 25.4 pg (27-33); Mean Corpuscular Volume 81.5 fl (85-98); Nucleated Red Blood Cells % 0 %; Platelet Count 214 10^3/cmm (157-399); Red Blood Count 3.46 10^6/uL (3.85-5.65); White Blood Count 10.47 10^3/uL (3.29-11.43)
[2025-09-17 13:25] VITALS: TEMP 35.7
[2025-09-17 13:26] VITALS: BP 120/76; PULSE 86
[2025-09-17 13:36] VITALS: BP 120/76; PULSE 83; RESP 15; TEMP 36.6
[2025-09-17 19:26] LABS: High Risk PP Hemorrhage BBK Notified
== END 2025-09-17 15:00 | disposition home or self-care (01) | DRG 788 ==
PROVIDERS: Admitting Provider Family Medicine; PCP Nurse Practitioner Family; Visit Provider Family Medicine
PROC: 10D00Z1 Extraction of Products of Conception, Low, Open Approach (ICD-10-PCS; CPT 59514; principal; 2025-09-16 07:00)
DX: O34.211 Maternal care for low transverse scar from previous cesarean delivery (principal); Z3A.39 39 weeks gestation of pregnancy; Z37.0 Single live birth; O32.8XX0 Maternal care for other malpresentation of fetus, not applicable or unspecified; O69.81X0 Labor and delivery complicated by cord around neck, without compression, not applicable or unspecified; O75.89 Other specified complications of labor and delivery; I45.10 Unspecified right bundle-branch block; Z86.718 Personal history of other venous thrombosis and embolism
CPT/HCPCS: 36415; 51702; 59409; 85025; 85027; 86850; 86900; 96372; 96374; J0690; J1650; J1885; J2274; J2405; J2765; J3010; J3490; J7030; J7121; J9999